=== PATIENT | male | born 1960 | race Caucasian/White ===

== ENCOUNTER 2021-05-07 09:37 | Outpatient (RCR) | payer OTHER, SELFPAY ==
[2021-05-07 14:43] VITALS: BP 112/60; PULSE 91; RESP 18; TEMP 36.9; O2SAT 99
[2021-05-07] MEDS: diphenhydrAMINE HCl CAP 25 MG CAPSULE PO (14:47)
[2021-05-07] MEDS: FAMOTIDINE 20 MG TABLET PO (14:47)
[2021-05-07 15:54] VITALS: BP 109/63; PULSE 69; RESP 14; TEMP 36.3; O2SAT 98
--- NOTE | 2021-05-08 15:14 | PC.NURSE ---
Called Mr Shaver and he stated he had body aches last night but today he is doing better. He has no questions at this time.
== END 2021-05-07 17:00 ==
LOC: AMCINF 09:37
PROVIDERS: PCP Physician Assistant; Visit Provider Internal Medicine Hematology & Oncology
DX: U07.1 COVID-19 (principal)
CPT/HCPCS: A9270; M0243; Q0244

== ENCOUNTER 2024-01-20 11:53 | Emergency (ER) | payer OTHER, SELFPAY ==
[2024-01-20 12:05] VITALS: BP 126/84; PULSE 89; RESP 20; TEMP 36.6; O2SAT 98
--- NOTE | 2024-01-20 12:05 | ED.CHESTPAIN ---
HPI - Chest Pain General Chief Complaint: Chest Pain Stated Complaint: passed out 11/2hr ago, pulse fast, chest pain Time Seen by Provider: 01/20/24 12:06 Source: patient, RN notes reviewed and old records reviewed Mode of arrival: ambulatory Limitations: no limitations History of Present Illness HPI narrative: Patient presents to [facility] with complaints of near syncope, dizziness, chest tightness. He reports in terms began about 2 hours ago. He reports he was working in the heat when symptoms began, he was also angry. States that he has felt better since sitting in air conditioning. Reports he still feels ?weird?. No diaphoresis noted. Patient observed ambulating with steady gait Related Data Home Medications Medication Instructions Recorded Confirmed No Home Medications 09/19/23 01/20/24 Allergies Allergy/AdvReac Type Severity Reaction Status Date / Time No Known Allergies Allergy Unknown Verified 01/20/24 12:03 Review of Systems Review of Systems: All systems reviewed & are unremarkable except as noted in HPI and below Constitutional: Constitutional: Reports no additional constitutional complaints ENT: Reports system reviewed and no additional complaints, except as documented Cardiovascular: Cardiovascular: Reports as per HPI, Reports no additional cardiovascular complaints, Reports chest pain, Denies diaphoresis, Denies syncope (Near syncope), Reports rapid heart rate and Reports dyspnea Respiratory: Respiratory: Reports as per HPI, Reports no additional respiratory complaints and Reports dyspnea Gastrointestinal: Gastrointestinal: Reports no additional gastrointestinal complaints Neurologic: Reports dizziness PMFSH Surgical History Surgical History No history of previous surgery Family History Family History Mother Dementia Sibling Primary cancer of blood vessel Father Family history of Alzheimer's disease, Onset Age: 74 Patient's father is Sibling Acute myocardial infarction Social History Social History Smoking status: Former smoker Tobacco type: cigarettes Second hand tobacco smoke exposure: No Smoking end date: 05/23/76 Alcohol intake: current Substance use: never Substance use type: does not use Lack of Transportation: No Lack of Food: Never True Current Housing: I Have Housing Concerned About Future Housing: No Difficulty Paying Gas/Electric Bills: No Difficulty Paying for Meds: No Currently Unemployed: No Education: High School Diploma/GED Difficulty w/ Childcare or Family Care: No Living arrangements: with family 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 There is no relevant family history pertinent to the patient complaint. Exam Const: General: cooperative, no acute distress, alert and awake Orientation/consciousness: oriented to person, oriented to place and oriented to time HENMT: Head: normal to inspection Resp: Effort & Inspection: normal respiratory effort and able to speak in complete sentences Auscultation: clear to auscultation bilaterally, no crackles, no rales, no rhonchi and no wheezes Cardio: Palpation: normal PMI Rate: regular rate Rhythm: regular rhythm Heart sounds: S1 normal heart sound present and S2 normal heart sound present Neuro: General: oriented to person, oriented to place and oriented to time Cranial nerves: Yes CN's II-XII intact bilaterally Psych: Appearance: grossly normal Thought process: Normal thought process present Insight: Good insight present
--- NOTE | 2024-01-20 12:06 | ECG_ITS ---
Test Date: 2024-01-20 12:17:33 Measurements Intervals [place] Rate: 90 P: 68 NC: 165 QRS: -75 QRSD: 105 T: 25 QT: 370 QTc: 455 Interpretive Statements SINUS RHYTHM LEFT ANTERIOR FASCICULAR BLOCK [QRS AXIS <= -45, QR IN I, RS IN II] No previous ECG available for comparison Electronically Signed On 01-21-2024 14:23:52 CDT by Samuel Walls M.D.
== END 2024-01-20 12:25 | disposition short-term general hospital (02) ==
PROVIDERS: Emergency Provider Nurse Practitioner Family; PCP Internal Medicine
DX: R07.9 Chest pain, unspecified (principal); Z87.891 Personal history of nicotine dependence
CPT/HCPCS: 93005; 99213; G0463

== ENCOUNTER 2024-01-20 12:58 | Emergency (ER) | payer OTHER, SELFPAY ==
--- NOTE | ~2024-01-20 | XR_ITS ---
EXAMINATION: XR chest 2V 01/20/2024 14:01 INDICATION: Chest pain PROCEDURE: 2 view chest COMPARISON: Comparison to multiple prior studies sequentially, with oldest reviewed study dated 12/09. FINDINGS: The lungs are clear. The cardiomediastinal silhouette is within normal limits. There are no pleural effusions. There is no pneumothorax suspected. IMPRESSION: 1: NO ACUTE CARDIOPULMONARY DISEASE. Reviewed, dictated and finalized at location B.
--- NOTE | ~2024-01-20 | CT_ITS ---
EXAMINATION: CTA chest PE protocol DATE: 01/20/2024 15:34 INDICATION: Chest pain. TECHNIQUE: Computed tomography angiography (CTA) of the chest was performed with 100 mL Omnipaque-350 intravenous contrast timed to evaluate the pulmonary arteries. Coronal maximum intensity projection 3D-reconstructions were created by the technologist. Automated exposure control and iterative reconst ruction technique were employed. The dose-length product was 570.48 mGy-cm. COMPARISON: None. FINDINGS: The lungs demonstrate mild dependent atelectasis. No pleural effusion. There is right ventr icular enlargement of the heart. There is a small pericardial effusion. There are acute pulmonary emb hedy in all lobes including a saddle embolus in the main pulmonary artery. There is mild thoracic spon dylosis. There is mild chronic anterior wedging of multiple vertebral bodies. IMPRESSION: 1. Extensive acute bilateral pulmonary emboli with right heart strain. I called this result to Dr. Pablito young. 2. Small pericardial effusion. Reviewed, dictated and finalized at location A. IMPRESSION: 1. Extensive acute bilateral pulmonary emboli with right heart strain. I called this result to Dr. Deleon. 2. Small pericardial effusion.
--- NOTE | 2024-01-20 13:01 | ECG_ITS ---
Test Date: 2024-01-20 13:05:57 Measurements Intervals [place] Rate: 90 P: 76 AR: 161 QRS: -78 QRSD: 94 T: 46 QT: 358 QTc: 439 Interpretive Statements SINUS RHYTHM PATTERN CONSISTENT WITH PULMONARY DISEASE LEFT ANTERIOR FASCICULAR BLOCK [QRS AXIS <= -45, QR IN I, RS IN II] Compared to ECG 01/20/2024 12:17:33 No significant changes Electronically Signed On 01-21-2024 14:25:08 CDT by Samuel Walls M.D.
[2024-01-20 13:24] LABS: Basophils Absolute Auto 0.1 K/mm3 (0.0-0.1); Basophils Percent Auto 0.4 % (0.2-1.2); Eosinophils Absolute Auto 0.1 K/mm3 (0-0.3); Hematocrit 45.4 % (42.0-52.0); Hemoglobin 15.9 g/dL (14.0-18.0); Immature Granulocyte Absolute 0.05 K/mm3 (0.00-0.031); Immature Granulocyte Percent A 0.4 % (0-0.5); Lymphocytes Absolute Auto 1.52 K/mm3 (0.9-3.2); Lymphocytes Percent Auto 12.4 % (18.3-44.2); Mean Corpuscular Hemoglobin 31.8 pg (26-34); Mean Corpuscular Volume 90.8 fl (80-100); Mean Platelet Volume 9.3 fl (7.4-10.4); Monocytes Absolute Auto 0.8 K/mm3 (0.1-0.6); Monocytes Percent Auto 6.5 % (2.6-8.5); Neutrophils Absolute Auto 9.8 K/mm3 (1.3-6.7); Neutrophils Percent Auto 79.3 % (45.5-73.1); Platelet Count Result 234 k/mm3 (150-375); White Blood Count 12.3 K/mm3 (4.5-10.0)
[2024-01-20] MEDS: ASPIRIN 81 MG CHEWABLE TABLET 324 MG PO (13:26)
[2024-01-20 13:34] LABS: INR 1.3; Prothrombin Time 16.5 Seconds (11.1-14.7)
[2024-01-20 13:35] LABS: Partial Thromboplastin Time 32.6 Seconds (22.3-36.8)
[2024-01-20 13:42] LABS: Alanine Aminotransferase 30 U/L (6-50); Albumin Level 4.4 g/dL (3.5-5.1); Alkaline Phosphatase 85 U/L (38-126); Anion Gap 9 mmol/L (4-12); Aspartate Amino Transferase 27 U/L (17-59); Bilirubin,Total 0.9 mg/dL (0.2-1.3); Blood Urea Nitrogen 17 mg/dL (9-20); Calcium 9.3 mg/dL (8.4-10.2); Carbon Dioxide 26 mmol/L (22-30); Chloride 104 mmol/L (98-107); Estimated CRCL calculation 73 ml/min; Estimated Glomerular Filt Rate > 60; Glucose 101 mg/dL (65-110); Lipase 58 U/L (23-300); Potassium 4.2 mmol/L (3.4-5.0); Sodium 139 mmol/L (137-145)
[2024-01-20 14:09] LABS: Troponin I 0.173 ng/mL (0.000-0.034)
[2024-01-20 14:23] LABS: D Dimer 12.76 ug/mL (<0.48)
[2024-01-20 14:58] VITALS: BP 123/99; PULSE 80; RESP 15; O2SAT 97
--- NOTE | 2024-01-20 15:15 | PM.CNCAR ---
Assessment and Plan Assessment and plan (1) Chest pain: Qualifiers: Chest pain type: unspecified Qualified Code(s): R07.9 - Chest pain, unspecified Code(s): R07.9 - Chest pain, unspecified Status: Acute (2) Troponin I above reference range: Code(s): R79.89 - Other specified abnormal findings of blood chemistry Status: Acute Plan This is a 63-year-old man with a paucity of risk factors. He is a former smoker who has a family history of coronary disease in 2 siblings. He enters the hospital with an episode of chest pain that began after a heated argument, conversation at work. He does not describe anything that sounds like exertional angina. He has 2 electrocardiograms that are normal but his admitted troponin level is moderately elevated. In this setting I would recommend pursuing a coronary angiogram since his troponin is elevated. Patient understands this and is agreeable we discussed the catheterization procedure in detail as well as the risks involved. We will bring him to the general labor shortly for angiographic assessment. Manuel Isidro MD [facility] History of Present Illness History of Present Illness Consult date/time: 01/20/24 15:15 Reason For Visit: CHEST PAIN,NEAR SYNCOPAL EVENT Narrative: This is a 63-year-old man I am seeing in the emergency room because of chest discomfort and elevation of troponin. Patient is unknown to me prior to this consultation. He is not known to have any cardiac problems up until now. He was in his usual state of what is relatively good health when this morning after he got to work he became angry regarding a co-worker who did show up for work. He was discussing this with others and he was becoming rather unhappy about the situation and this caused him to feel unwell with the sense of some tightness in the chest as well as some sense of sweating and lightheadedness. At 1 point he thought he was close to having a syncopal episode. Because of these symptoms he went into his truck turned on the air conditioner to cool down. He was then taken to the urgent care center by coworkers who brought into the emergency room for further evaluation. In the ER he has had 2 electrocardiograms which are unremarkable. He has lab data showing a troponin level that is somewhat elevated at just over 0.1. He does not have any known medical problems and takes no home medication for anything. He was a former smoker but quit more than 3 decades ago. He has 2 siblings, 1 sister and 1 brother who have coronary artery disease. Review of Systems Constitutional: Constitutional: Reports no additional constitutional complaints Eyes: Eyes: Reports no additional eye complaints ENT: Reports system reviewed and no additional complaints, except as documented Cardiovascular: Cardiovascular: Reports as per HPI and Reports chest pain Respiratory: Respiratory: Reports no additional respiratory complaints Gastrointestinal: Gastrointestinal: Reports no additional gastrointestinal complaints Musculoskeletal: Musculoskeletal: Reports no additional musculoskeletal complaints Integumentary/Breasts: Skin/Breast: Reports system reviewed and no additional complaints, except as docu Neurologic: Comments: Alert and oriented x3 Hematologic/Lymphatic: Hematologic/Lymphatic: Reports no additional hematologic/lymphatic complaints Allergic/Immunologic: Allergic/Immunologic: Reports no additional allergic/immunologic complaints [facility] Surgical History Surgical History No history of previous surgery Family History Family History Mother Dementia Sibling Primary cancer of blood vessel Father Family history of Alzheimer's disease, Onset Age: 74 Patient's father is Sibling Acute myocardial infarction Social History Social History (Reviewed
--- NOTE | 2024-01-20 15:18 | ED.CHESTPAIN ---
HPI - Chest Pain General Chief Complaint: Chest Pain Stated Complaint: CHEST PAIN,NEAR SYNCOPAL EVENT Time Seen by Provider: 01/20/24 13:08 Source: patient and family Mode of arrival: ambulatory Limitations: no limitations History of Present Illness HPI narrative: 63-year-old otherwise healthy here with the complaints of sudden onset of chest pain, shortness of breath. Patient states that he was about to go to work got into his truck started having chest pain followed by shortness of breath and lightheadedness. He states that he drove herself to Urgent Care and he was later referred here to the ER his pain present complaint upon arrival to the ER if shortness of breath has very minimal chest pain. No previous history of CAD. MD complaint: chest heaviness Onset (ago): hour(s) (2) Timing of current episode: now resolved Prior episodes: No Onset: during rest Pain location: substernal Pain radiation: none Quality: heaviness Relieving factors: nothing Exacerbating factors: nothing Associated symptoms: other (light headness) Treatment prior to arrival: none Risk Factors Coronary artery disease risk factors: smoking history Related Data Home Medications Medication Instructions Recorded Confirmed No Home Medications 09/19/23 01/20/24 Allergies Allergy/AdvReac Type Severity Reaction Status Date / Time No Known Allergies Allergy Unknown Verified 01/20/24 17:22 Review of Systems Review of Systems: All systems reviewed & are unremarkable except as noted in HPI and below Constitutional: Constitutional: Reports no additional constitutional complaints Eyes: Eyes: Reports no additional eye complaints ENT: Reports system reviewed and no additional complaints, except as documented Cardiovascular: Cardiovascular: Reports as per HPI Respiratory: Respiratory: Reports as per HPI Genitourinary: Genitourinary: Reports no additional male genitourinary complaints Musculoskeletal: Musculoskeletal: Reports no additional musculoskeletal complaints Neurologic: Reports system reviewed and no additional complaints, except as documented Psychiatric: Psychiatric: Reports no additional psychiatric complaints Hematologic/Lymphatic: Hematologic/Lymphatic: Reports no additional hematologic/lymphatic complaints [facility] Surgical History Surgical History No history of previous surgery Family History Family History Mother Dementia Sibling Primary cancer of blood vessel Father Family history of Alzheimer's disease, Onset Age: 74 Patient's father is Sibling Acute myocardial infarction Social History Social History Smoking status: Former smoker Tobacco type: cigarettes Second hand tobacco smoke exposure: No Smoking end date: 05/23/76 Alcohol intake: current Substance use: never Substance use type: does not use Lack of Transportation: No Lack of Food: Never True Current Housing: I Have Housing Concerned About Future Housing: No Difficulty Paying Gas/Electric Bills: No Difficulty Paying for Meds: No Currently Unemployed: No Education: High School Diploma/GED Difficulty w/ Childcare or Family Care: No Living arrangements: with family 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 HEAD: Normocephalic, atraumatic. EYES: PERRLA and EOMI. ENT: Nares clear, no rhinorrhea or epistaxis. Mucous membranes moist. NECK: Supple. CHEST: Clear to auscultation. No respiratory distress. HEART: Regular rate and rhythm. No murmur heard. Normal peripheral pulses. ABDOMEN: Soft, nontender, nondistended, normal ac
--- NOTE | 2024-01-20 15:20 | WPDMODSED ---
Moderate Sedation Note-Pt Data Patient Data Diagnosis: Chest pain, troponin elevation, rule out acute coronary syndrome Present Complaint: Chest pain earlier today Procedure to be performed/Plan: Left heart catheterization Allergies Allergy/AdvReac Type Severity Reaction Status Date / Time No Known Allergies Allergy Unknown Verified 01/20/24 12:03 Home Medications Medication Instructions Recorded Confirmed Type No Home Medications 09/19/23 01/20/24 History Sedation/Anesthesia: No previous sedation/anesthesia problems (including family history). [facility] Surgical History Surgical History No history of previous surgery Family History Family History Mother Dementia Sibling Primary cancer of blood vessel Father Family history of Alzheimer's disease, Onset Age: 74 Patient's father is Sibling Acute myocardial infarction Social History Social History Smoking status: Former smoker Tobacco type: cigarettes Second hand tobacco smoke exposure: No Smoking end date: 05/23/76 Alcohol intake: current Substance use: never Substance use type: does not use Lack of Transportation: No Lack of Food: Never True Current Housing: I Have Housing Concerned About Future Housing: No Difficulty Paying Gas/Electric Bills: No Difficulty Paying for Meds: No Currently Unemployed: No Education: High School Diploma/GED Difficulty w/ Childcare or Family Care: No Living arrangements: with family 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 Gender identity (if verbalized by the patient): Male Spiritual care concerns: No Mod Sed Physical Exam Physical Exam Pre Procedural Exam: Normal: Appearance, Neck, Throat, Airway, Lungs, Heart Size, Heart Rate, Heart Rhythm, Neuro Exam and Extremities Hours since solid foods: 12 Hours since liquid intake: 12 Mallampati Classification: class II Internal Medicine - PN: Obj Da Vital Signs Vital Signs: Vital Signs - 24 hr 01/20/24 13:13 01/20/24 14:58 Pulse Rate 80 Respiratory Rate 15 Blood Pressure 123/99 H Pulse Oximetry 97 Oxygen Delivery Room Air Meds/Results Radiology Results: ITS Impressions Chest X-Ray 01/20/24 14:17 IMPRESSION: 1: NO ACUTE CARDIOPULMONARY DISEASE. Labs 01/20/24 13:15 08/30/24 13:15 Labs: Laboratory Results - last 24 hr 01/20/24 13:15 WBC 12.3 H RBC 5.00 Hgb 15.9 Hct 45.4 MCV 90.8 MCH 31.8 MCHC 35.0 RDW 13.0 Plt Count 234 MPV 9.3 Immature Gran % (Auto) 0.4 Neut % (Auto) 79.3 H Lymph % (Auto) 12.4 L [place] % (Auto) 6.5 Eos % (Auto) 1.0 Baso % (Auto) 0.4 Lymph # (Auto) 1.52 [place] # (Auto) 0.8 H Eos # (Auto) 0.1 Baso # (Auto) 0.1 Abs Immat Gran (auto) 0.05 H Absolute Neuts (auto) 9.8 H Absolute Nucleated RBC 0.000 Nucleated RBC % 0.0 PT 16.5 H INR 1.3 APTT 32.6 D-Dimer 12.76 H Sodium 139 Potassium 4.2 Chloride 104 Carbon Dioxide 26 Anion Gap 9 BUN 17 Creatinine 1.00 Estim Creat Clear Calc 73 Estimated GFR > 60 Glucose 101 Calcium 9.3 Total Bilirubin 0.9 AST 27 ALT 30 Alkaline Phosphatase 85 Troponin I 0.173 H* Total Protein 8.0 Albumin 4.4 Lipase 58 ASA Classification/Sedation ASA Classification/Sedation ASA Class: III Emergent: No Risks: Risks, benefits and alternatives explained and patient/family accepted plan for sedation. Patient re-evaluated immediately prior to sedation.
--- NOTE | 2024-01-20 15:23 | PC.NURSE ---
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
--- NOTE | 2024-01-20 15:37 | ECG_ITS ---
Test Date: 2024-01-20 15:42:28 Measurements Intervals [place] Rate: 81 P: 67 [place]: 175 QRS: -63 QRSD: 96 T: 31 QT: 375 QTc: 436 Interpretive Statements SINUS RHYTHM INCOMPLETE RIGHT BUNDLE BRANCH BLOCK [90+ ms QRS DURATION, TERMINAL R IN V1/V2, 40+ ms S IN I/aVL/V4/V5/V6] LEFT ANTERIOR FASCICULAR BLOCK [QRS AXIS <= -45, QR IN I, RS IN II] Compared to ECG 01/20/2024 13:05:57 Incomplete right bundle-branch block now present Electronically Signed On 01-21-2024 14:32:36 CDT by Samuel Walls M.D.
[2024-01-20] MEDS: HEPARIN SODIUM 5,000 UNITS/ML VIAL 7000 UNITS IV PUSH (16:01)
[2024-01-20] MEDS: HEPARIN SOD/D5W 100 UNITS/ML 25,000 UNITS/250 ML BAG 15 UNITS IV CONT (16:02)
[2024-01-20 16:27] LABS: Troponin I 0.334 ng/mL (0.000-0.034)
[2024-01-20 17:25] VITALS: BP 131/90; PULSE 81; RESP 18; O2SAT 99
== END 2024-01-20 18:16 | disposition short-term general hospital (02) ==
PROVIDERS: Emergency Medicine; Emergency Provider Family Medicine; PCP Internal Medicine
DX: I26.99 Other pulmonary embolism 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 (principal); R79.89 Other specified abnormal findings of blood chemistry; Z87.891 Personal history of nicotine dependence; I44.4 Left anterior fascicular block; R94.31 Abnormal electrocardiogram [ECG] [EKG]
CPT/HCPCS: 36415; 71046; 71275; 80053; 83690; 84484; 85025; 85380; 85610; 85730; 93005; 96365; 96366; 99291; A9270; J1644; J7040; Q9967

== ENCOUNTER 2024-02-08 16:07 | Outpatient (CLI) | payer OTHER, SELFPAY ==
--- NOTE | ~2024-02-08 | US_ITS ---
EXAMINATION: US venous doppler [facility] DATE: 02/08/2024 17:13 INDICATION: Right lower limb pain. Other pulmonary embolism 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. TECHNIQUE: Grayscale ultrasound images without and with compression and Doppler ultrasound images of the bilateral lower extremity veins were obtained. COMPARISON: None. FINDINGS: The visualized portions of right common femoral vein, peroneal veins, posterior tibial veins, and gre ater saphenous vein outflow are patent. There is thrombus in right profunda femoral vein, femoral vei n, and popliteal vein. The visualized portions of left common femoral vein, profunda femoral vein, femoral vein, popliteal v ein, peroneal veins, posterior tibial veins, and greater saphenous vein outflow are patent. IMPRESSION: 1. Deep vein thrombosis involving right profunda femoral vein, femoral vein, and popliteal vein. Reviewed, dictated and finalized at location A. IMPRESSION: 1. Deep vein thrombosis involving right profunda femoral vein, femoral vein, a nd popliteal vein.
== END 2024-02-08 16:08 | disposition home or self-care (01) ==
LOC: ANHIMG 16:10
PROVIDERS: PCP Internal Medicine; Visit Provider Nurse Practitioner
DX: I26.99 Other pulmonary embolism 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 (principal); I82.411 Acute embolism and thrombosis of right femoral vein; I82.431 Acute embolism and thrombosis of right popliteal vein
CPT/HCPCS: 93970

== ENCOUNTER 2024-03-29 10:11 | Outpatient (CLI) | payer OTHER, SELFPAY ==
--- NOTE | ~2024-03-29 | XR_ITS ---
Right Shoulder Technique: AP and scapular Y views were obtained. Clinical History: Pain Findings: No fracture or dislocation is seen. Osseous alignment is anatomic. The glenohumeral and acr omioclavicular joint spaces are preserved. Soft tissues are unremarkable. Impression: Unremarkable right shoulder radiographs. Reviewed, dictated and finalized at [facility]. 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
== END 2024-03-29 10:12 | disposition home or self-care (01) ==
LOC: ANHIMG 10:13
PROVIDERS: PCP Internal Medicine; Visit Provider Internal Medicine
DX: M25.511 Pain in right shoulder (principal)
CPT/HCPCS: 73030

== ENCOUNTER 2024-05-07 13:57 | Outpatient (CLI) | payer OTHER, SELFPAY ==
--- NOTE | ~2024-05-07 | XR_ITS ---
EXAMINATION: XR lg joint inject/asp w image DATE: 05/07/2024 15:01 INDICATION: Right shoulder primary osteoarthritis with 3 months of pain TECHNIQUE: A time-out was performed to verify the patient's name, date of , and procedure to b e performed. The procedure including the risks, benefits, and alternatives was discussed with the pat ient. Risks discussed included bleeding and infection. The patient understood the risks and agreed to proceed. The skin overlying the rotator cuff interval the right glenohumeral joint was prepped and draped in usual sterile fashion. Anesthetic was administered with 1% lidocaine subcutaneously. A 22 G needle was advanced under fluoroscopic guidance into the joint. Injection of 1 mL of Omnipaque 24 0 confirmed intra-articular position of the needle. Subsequently, injectate consisting of 5 mm a 4:1 mixture of 1% lidocaine: 80 mg/mL Depo-Medrol for a total dose of 80 mg Depo-Medrol was instilled. W ashout of contrast was seen confirming intra-articular administration. The needle was removed and the entry site was cleaned and dressed. There were no immediate complications. Fluoroscopy exposure tana e was 0.1 minutes. The total number of images was 2. Total DAP was 0.225 Gycm^2 FINDINGS: Real-time fluoroscopy demonstrates the needle and contrast in the right glenohumeral joint. Patient's pain prior to procedure:6/10. Patient's pain following the procedure: 0/10. IMPRESSION: 1. Successful right glenohumeral injection of local anesthetic and steroid with decrease in the patie nt's presenting pain. Reviewed, dictated and finalized at location A. SOLUTION ARCHITECT IMPRESSION: 1. Successful right glenohumeral injection of local anesthetic and steroid with decrease in the patient's presenting pain.
== END 2024-05-07 13:58 | disposition home or self-care (01) ==
PROVIDERS: PCP Internal Medicine; Visit Provider Physician Assistant Surgical
DX: M19.011 Primary osteoarthritis, right shoulder (principal)
CPT/HCPCS: 20610; 77002; J1010; J2003

== ENCOUNTER 2024-11-05 13:58 | Outpatient (CLI) | payer OTHER, SELFPAY ==
--- NOTE | ~2024-11-05 | XR_ITS ---
EXAMINATION: XR UGIAC w barium swallow DATE: 11/05/2024 14:41 INDICATION: Epigastric pain TECHNIQUE: The patient drank thick barium, gas-producing crystals, and thin barium. A total of 1180 f luoroscopic images of the esophagus, stomach, and proximal small bowel were obtained. Fluoroscopy exp osure time was 2.2 minutes. Total DAP was 18.925 Gycm^2. COMPARISON: None. FINDINGS: The esophagus is normal without mass or stricture. Esophageal motility is normal. Small sli ding-type hiatal hernia with gastroesophageal junction 4-5 cm above level of the diaphragm. There is one episode of gastroesophageal reflux of a moderate amount of contrast extending to the level of the upper thoracic esophagus. The stomach and proximal small bowel are normal. IMPRESSION: 1. Small sliding-type hiatal hernia with one episode gastroesophageal reflux. Reviewed, dictated and finalized at location A.
--- OUTSIDE RECORDS SUMMARY | 2024-11-05 15:06 | XMS_ITS | Clinical Summary ---
Author Organization [facility] Address [address] [place] [address] Phone Care Team Providers Care Utility Hand Name Role Phone Unavailable Primary Care Provider Unavailabl e Social History Tobacco Use Types Packs/Day Years Used Date Smoking Tobacco: Never Assessed Sex and Gender Information Value Date Recorded Sex Assigned at Not on file Legal Sex Male 10:58 AM CDT Gender Identity Not on file Sexual Orientation Not on file Plan of Treatment Not on file
--- OUTSIDE RECORDS SUMMARY | 2024-11-05 15:06 | XMS_ITS | Clinical Summary ---
Author Organization [facility] Address [address] [place] [address] Care Team Providers Care Wine Sales Representative Name Role Phone Janet Romero DO Primary Care Provider [phone] Source Comments [facility],non-owned Affiliates and Associated Physician Practices is amultiple site organization consisting of ambulatory clinics and hospital sitesin [place], [place], [place] and [place]. This disclosure is being madepursuant to the Care Everywhere program and may not contain all information available regarding this patient. Last updated 18.[facility] Allergies No known active allergies Medications * Be aware that medications may not be up to date on this document. Alwaysverify current medications with the patient. ezetimibe (Zetia) 10 MG tabletIndications: Hyperlipidemia, unspecified hyperlipidemia type Take 1 (one) tablet by mouth once daily 30 tablet 5 10/25/19 26 Active apixaban (Eliquis) 5 MG tablet Take 1 (one) tablet by mouth 2 times daily 180 tablet 1 5 10/23/19 25 Discontinu ed(Reorder ) apixaban (Eliquis) 5 MG tablet Take 1 (one) tablet by mouth 2 times daily 180 tablet 1 5 11/01/19 25 Discontinu ed(Tx Complete) Active Problems Problem Noted Date Diagnosed Date Deep vein thrombosis (DVT) of proximal lower ext remity 01/23/2024 Elevated troponin 01/21/2024 Chest pain 01/21/2024 Leukocytosis 01/21/2024 Acute saddle pulmonary embol ism, unspecified whether acute cor pulmonale present 01/20/2024 GERD (gastroesophageal reflux disease) Encounters Date Type Department Care Team Description 10/31/2024 Orders Only [facility] INTERNAL MED [address] [place] [address] Janet Romero, 10/24/2024 2:30 PM CDT Office Visit [facility] Internal Med [facility] [place] [address] Janet Romero, Saddle embolus of pulmonary artery 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, unspecified chronicity (HCC) (Primary Dx); Leg DVT (deep venous thromboembolism), chronic, bilateral (HCC); Hyperlipidemia, unspecified hyperlipidemia type; Colon cancer screening 10/24/2024 Travel 10/22/2024 Orders Only [facility] INTERNAL MED [address] [place] [address] Janet Romero, 10/22/2024 Telephone [facility] [place] [address] Janet Romero DO Med Question; Echocardiogram 08/27/2024 1:00 PM CDT - 08/27/2024 11:59 PM CDT Hospital Encounter [facility] VASCULAR US [address] [place] [address] Pavel Hernandez MD Discharge Disposition: Home or Self Care 08/27/2024 Travel from Last 3 Months Family History Medical History Relation Name Comments CAD (Coronary Artery Disease) Brother Cancer - Prostate Brother CVA Mother CAD (Coronary Artery Disease) Sister Relation Name Status Comments Brother Mother Sister Social History Tobacco Use Types Packs/Day Years Used Date Smoking Tobacco: Former Cigarettes 1 44.8 S tarted: 01/1980 Passive Smoke Exposure: Never Smokeless Tobacco: Never Tobacco Cessation:Counseling Given: Not Answered Comments:has not used since teenage years (14-15) Alcohol Use Standard Drinks/Week Comments Yes 0 (1 standard drink = 0.6 oz pur e alcohol) socially AUDIT-C Answer Date Recorded Q1: How often do you have a drink containing alc ohol? Monthly or less 01/21/2024 Q2: How many drinks containi ng alcohol do you have on a typical day when you are drinking? 1 or 2 01/21/2024 Q3: How often do you have si x or more drinks on one occasion? Less than monthly 01/21/2024 Overall Financial Resource Strain (CARDIA) Answe r Date Recorded How hard is it for you to pa y for the very basics like food, housing, medical care, and heating? Patient declined 01/21/2024 PHQ-2 Answer Date Recorded Patient Health Questionnaire-2 Score 0 10/24/2024 [facility] - Occupational Stress Questionnaire Answer Date Recorded Do you feel stress - tense, restless, nervous, or anxious, or unable to sleep at night because your mind is troubled all the time - these days? Only a little 01/21/2024 Hunger Vital Sign Answer Date Recorded Within the past 12 months, y ou worried that your food would run out before you got the money to buy more. Patient declined Within the past 12 months, t he food you bought just didn't last and you didn't have money to get more. Patient declined PRAPARE - Transportation Answer Date Re corded In the past 12 months, has l ack of transportation kept you from medical appointments or from getting medications? Patient declined 01/21/2024 In the past 12 months, has l ack of transportation kept you from meetings, work, or from getting things needed for daily living? Patient declined 01/21/2024 Housing Stability Vital Sign Answer Conner e Recorded In the last 12 months, was t here a time when you were not able to pay the mortgage or rent on time? Patient declined 01/21/20 24 In the last 12 months, how many places have you lived? 1 01/21/2024 In the last 12 months, was t here a time when you did not have a steady place to sleep or slept in a residential (including now)? No 01/21/2024 Sex and Gender Information Value Date Recorded Sex Assigned at Male 01/21/2024 11:15 AM CDT Legal Sex Male 4:17 PM CDT Gender Identity Male 01/21/2024 11:15 AM CDT Sexual Orientation Straight 01/21/2024 11 :15 AM CDT Last Filed Vital Signs Vital Sign Reading Time Taken Comments Blood Pressure 113/75 10/24/2024 2:41 PM CDT Pulse 80 10/24/2024 2:41 PM CDT Temperature 36.2 C (97.2 F) 10/24/2024 2:41 PM CDT Respiratory Rate 17 06/13/2024 3:41 PM SURGICAL GARMENT ASSEMBLY SUPERVISOR Oxygen Saturation 95% 10/24/2024 2:41 PM CDT Inhaled Oxygen Concentration - - Weight 100.7 kg (222 lb) 10/24/2024 2:41 PM CDT Height 177.8 cm (5' 10) 10/24/2024 2:41 PM CDT Body Mass Index 31.85 10/24/2024 2:41 PM CDT Plan of Treatment Upcoming Encounters Date Type Department Care Team (Late st Contact Info) Description 12/05/2024 12:20 PM CDT Appointment [facility] CL[facility]IC [address] [place] [address] Susan Montez MD [address] [place] [phone] 05/01/2025 3:30 PM SURGICAL GARMENT ASSEMBLY SUPERVISOR Office Visit [facility] - Internal Med [address] [place] [phone] Health Maintenance Due Date Last Done Comments COLON MONITORING 1960 COLONOSCOPY - COLON CA SCREENING 1960 CT COLONOGRAPHY - COLON CA SCREENING 1960 FIT - COLON CA SCREENING 1960 FLEX SIG - COLON CA SCREENING 1960 ZOSTER VACCINE (1 of 2) 2010 INFLUENZA VACCINE (Season Ended) 2025 DTAP/TDAP/TD VACCINES (1 - Tdap) 01/24/2025 Postponed from 1979 (Patient Refused) Respiratory Syncytial Virus (RSV) Vaccine Pt: or over 60 yrs (1 - Risk 60-74 years 1-dose series) 01/24/2025 Postponed fro m 2020 (Patient Refused) COVID-19 VACCINE ( season) 2025 Postponed from 01/22/2024 (Patient Refused) HEPATITIS B VACCINE (1 of 3 - Risk 3-dose series) 10/24/2025 Postponed from 2020 (Patient Refused) PNEUMOCOCCAL VACCINE 50+ (1 of 1 - PCV) 10/24/2025 Postponed from 2010 (Patient Refused) SCREENING FOR DIABETES 06/06/2027 , 04/23/2024, 04/23/2024, Additional history exists COLOGUARD (AGES 45-75) - COLON CA SCREENING 10/31/2027 10/30/2024 Colorectal Cancer Screening 10/31/2027 LIPID TESTING 04/23/2029 04/23/2024 HEPATITIS C SCREENING Completed 04/23/2024 HIV SCREENING Completed 04/23/2024 DEPRESSION SCREENING Completed 10/24/2024, 04/23/20 24 HIB VACCINE Aged Out No longer eligi ble based on patient's age to complete this topic HPV VACCINE Aged Out No longer eligi ble based on patient's age to complete this topic MENINGOCOCCAL (Group B) VACCINE SHARED DECISION-MAKING Aged Out No longer eligible based on patient's age to complete this topic MENINGOCOCCAL GROUPS A/C/Y/W VACCINE Aged Out No longer eligible based on patient's age to complete this topic Goals Goal Patient Goal Type Associated Problems Recent Progress Patient-Stated? Author Medication Management General On track( 024 12:38 PM SURGICAL GARMENT ASSEMBLY SUPERVISOR) Dominguez De, RN Note: Expected end date: Interventions: Take all medications as prescribed Let your doctor know right away about any changes in your medications Make sure to request a refill of your medication at least one week prior to your last dose Procedures Procedure Name Priority Date/Time Associated Diagnosis Comments COLOGUARD TEST Routine 10/30/2024 8:00 AM CDT Colon cancer screening VAS BILATERAL VENOUS DUPLEX LE Routine 08/27/2024 2:14 PM CDT Chronic deep vein thrombosis (DVT) of distal vein of both lower extremities (HCC) COMPREHENSIVE METABOLIC PANEL STAT 06/06/2024 3:33 PM SURGICAL GARMENT ASSEMBLY SUPERVISOR 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 LIPID PROFILE Routine 04/23/2024 4:15 PM SURGICAL GARMENT ASSEMBLY SUPERVISOR Encounter to establish care Saddle embolus of pulmonary artery 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, unspecified chronicity Leg DVT (deep venous thromboembolism), chronic, bilateral HEPATITIS C AB SCREEN RFLX NAAT QUANT Routine 04/23/2024 4:15 PM SURGICAL GARMENT ASSEMBLY SUPERVISOR Encounter to establish care Saddle embolus of pulmonary artery 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, unspecified chronicity Leg DVT (deep venous thromboembolism), chronic, bilateral HIV-1 HIV-2 ANTIBODY + HIV P24 AG PANEL Routine 04/23/2024 4:15 PM SURGICAL GARMENT ASSEMBLY SUPERVISOR Encounter to establish care Saddle embolus of pulmonary artery 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, unspecified chronicity Leg DVT (deep venous thromboembolism), chronic, bilateral from Last 3 Months or Most Recently Relevant to Health Maintenance Results * [id number] COLOGUARD TEST *Associate with Z12.11 OR Z12.12 Dx Codes* (10/30/2024 8:00 AM CDT) Cologuard Negative Negative [facility] Comment: The Cologuard (TM) test was performed on this specimen. NEGATIVE TEST RESULT. A negative Cologuard result indicates a low likelihood that a colorectal cancer (CRC) or advanced adenoma (adenomatous polyps with more advanced pre-malignant features) is present. The chance that a person with a negative Cologuard test has a colorectal cancer is less than 1 in 1500 (negative predictive value >99.9%) or has an advanced adenoma is less than 5.3% (negative predictive value 94.7%). These data are based on a prospective cross-sectional study of 10,000 individuals at average risk for colorectal cancer who were screened with both Cologuard and colonoscopy. (Luz Servin, N Engl J Med 2014;370(14):4047-8302) The normal value (reference range) for this assay is negative. COLOGUARD RE-SCREENING RECOMMENDATION: Periodic colorectal cancer screening is an important part of preventive healthcare for asymptomatic individuals at average risk for colorectal cancer. Following a negative Cologuard result, the [place] [employer] Society and U.S. Multi-Society Task Force screening guidelines recommend a Cologuard re-screening interval of 3 years. References: [place] [employer] Guideline for Colorectal Cancer Screening: https://www.cancer.org/cancer/qvkgd-medbxv-vfopht/nphqnlwtb-iyszhrwpb-ftkqnhb/ acs-recommendations.html.; Declan DK, Karolina ROE, Ousmane SilverK, Colorectal Cancer Screening: Recommendations for Physicians and Patients from the U.S. Multi-Society Task Force on Colorectal Cancer Screening , Am J Gastroenterology 2017; 112:6069-0338. TEST DESCRIPTION: Composite algorithmic analysis of stool DNA-biomarkers with hemoglobin immunoassay. Quantitative values of individual biomarkers are not reportable and are not associated with individual biomarker result reference ranges. Cologuard is intended for colorectal cancer screening of adults of either sex, 45 years or older, who are at average-risk for colorectal cancer (CRC). Cologuard has been approved for use by the U.S. FDA. The performance of Cologuard was established in a cross sectional study of average-risk adults aged 50-84. Cologuard performance in patients ages 45 to 49 years was estimated by sub-group analysis of near-age groups. Colonoscopies performed for a positive result may find as the most clinically significant lesion: colorectal cancer [4.0%', advanced adenoma (including sessile serrated polyps greater than or equal to 1cm diameter) [20%' or non- advanced adenoma [31%'; or no colorectal neoplasia [45%'. These estimates are derived from a prospective cross-sectional screening study of 10,000 individuals at average risk for colorectal cancer who were screened with both Cologuard and colonoscopy. (Luz Jordan et al, N Engl J Med 2014;370(14):2494-7046.) Cologuard may produce a false negative or false positive result (no colorectal cancer or precancerous polyp present at colonoscopy follow up). A negative Cologuard test result does not guarantee the absence of CRC or advanced adenoma (pre-cancer). The current Cologuard screening interval is every 3 years. ([place] Cancer Society and U.S. Multi-Society Task Force). Cologuard performance data in a 10,000 patient pivotal study using colonoscopy as the reference method can be accessed at the following location: www.[employer].Ablynx/results. Additional description of the Cologuard test process, warnings and precautions can be found at www.cologuard.com. Stool STOOL SPECIMEN / Unknown 10/30/2024 8:00 AM CDT 10/31/2024 12:14 PM CDT Adam Gandhi MD LAB - CHEMISTRY ORDERABLES F inal Result [email or web address] [address] [facility] [address] [place] [address] [employer] [address] [place] [address] * VAS Bilateral Venous Duplex Le (08/27/2024 2:14 PM CDT) Anatomical Region Laterality Modality Lower Extremity Intravascular Ul trasound 08/27/2024 1:38 PM CDT Narrative Procedure Note Efrem Flowers MD - 08/28/2024 Pavel Hernandez MD VASCULAR LAB ORDERABLES Edited Result - Final * (ABNORMAL) COMPREHENSIVE METABOLIC PANEL (06/06/2024 3:33 PM SURGICAL GARMENT ASSEMBLY SUPERVISOR) BUN 15 7 - 26 mg/dL 06/06/2024 4:46 PM [facility] Creatinine 0.98 0.71 - 1.16 mg/dL 06/06/2024 4:46 PM [facility] Sodium 140 136 - 145 mmol/L 06/06/2024 4:46 PM [facility] Potassium 3.8 3.5 - 4.5 mmol/L 06/06/2024 4:46 PM [facility] Chloride 108(H) 98 - 107 mmol/L 06/06/2024 4:46 PM [facility] CO2 24 22 - 29 mmol/L 06/06/2024 4:46 PM [facility] Glucose 94 70 - 99 mg/dL 06/06/2024 4:46 PM [facility] Calcium 9.4 8.4 - 10.2 mg/dL 06/06/2024 4:46 PM [facility] Protein Total 7.0 6.0 - 8.3 g/dL 06/06/2024 4:46 PM [facility] Albumin 4.3 3.4 - 5.0 g/dL 06/06/2024 4:46 PM [facility] Bilirubin Total 0.6 0.2 - 1.2 mg/dL 06/06/2024 4:46 PM [facility] Alkaline Phosphatase 69 40 - 150 U/L 06/06/2024 4:46 PM [facility] ALT 19 5 - 55 U/L 06/06/2024 4:46 PM [facility] AST 16 5 - 34 U/L 06/06/2024 4:46 PM [facility] Anion Gap 8 6 - 16 06/06/2024 4:46 PM [facility] BUN/Creatinine Ratio 15 7 - 23 06/06/2024 4:46 PM [facility] Osmolality Calculated 291 275 - 295 mOsm/kg 06/06/2024 4:46 PM [facility] Albumin/Globulin Ratio 1.6 1.1 - 2.3 06/06/2024 4:46 PM [facility] eGFR by CKD-EPI 87(L) >=90 mL/min/1.7 3 m2 06/06/2024 4:46 PM [facility] Blood BLOOD SPECIMEN / Unknown Venipuncture / Unknown 06/06/2024 3:33 PM SURGICAL GARMENT ASSEMBLY SUPERVISOR 06/06/2024 4:20 PM [facility] us Susan Montez MD LAB - CHEMISTRY ORDERABLES Final Result [facility] [address] [place] [phone], [facility] [phone] * HEPATITIS C AB SCREEN RFLX NAAT QUANT (04/23/2024 4:15 PM SURGICAL GARMENT ASSEMBLY SUPERVISOR) Hepatitis C Antibody Non-react shayan Non-reac tive 04/23/2024 5:27 PM [facility] Comment:Hepatitis C Antibody screen indicates no serologic evidence of past or current infection with Hepatitis C Virus. Patients with unexplained liver disease who are immunocompromised or suspected of having acute Hepatitis C infection may benefit from Nucleic Acid Test (SAVANNA) for Hepatitis C Viral RNA to confirm Hepatitis C status. Blood BLOOD SPECIMEN / Unknown Lab Venipuncture / Unknown 04/23/2024 4:15 PM SURGICAL GARMENT ASSEMBLY SUPERVISOR 04/23/2024 4:33 PM SURGICAL GARMENT ASSEMBLY SUPERVISOR [facility] - CHEMISTRY ORDERABLES F inal Result Performing Organization Address City/[facility]/ZIP Co de Phone Number [address] [address], [place] [phone] * HIV-1 HIV-2 ANTIBODY + HIV P24 AG PANEL (New on 10/06) (04/23/2024 4:15 PM SURGICAL GARMENT ASSEMBLY SUPERVISOR) HIV Antigen/Antibod y 1 & 2 Non-reacti ve Non-react shayan 04/23/2024 5:27 PM [facility] Comment:No Laboratory eviden ce of HIV infection. Blood BLOOD SPECIMEN / Unknown Lab Venipuncture / Unknown 04/23/2024 4:15 PM SURGICAL GARMENT ASSEMBLY SUPERVISOR 04/23/2024 4:33 PM SURGICAL GARMENT ASSEMBLY SUPERVISOR [facility] LAB - CHEMISTRY ORDERABLES F inal Result Performing Organization Address [facility] [place]/[facility]/ZIP Co de Phone Number [address] [address], [place] [phone] * (ABNORMAL) LIPID PROFILE (04/23/2024 4:15 PM SURGICAL GARMENT ASSEMBLY SUPERVISOR) Cholesterol Total 265(H) <200 mg/dL 04/23/2024 5:18 PM [facility] HDL 41 >40 mg/dL 04/23/2024 5:18 PM [facility] Comment: ATP III Classification of HDL Cholesterol: <40 mg/dL: Considered a major risk factor. >60 mg/dL: Considered a negative risk factor. LDL Calculated 181(H) <100 mg/dL 04/23/2024 5:18 PM [facility] Comment: ATP III Classification of LDL Cholesterol: <100 mg/dL: Optimal 100 - 129 mg/dL: Near Optimal/Above Optimal 130 - 159 mg/dL: Borderline High 160 - 189 mg/dL: High >190 mg/dL: Very High Triglycerides 214(H) <150 mg/dL 04/23/2024 5:18 PM [facility] Comment: ATP III Classification of Triglycerides: <150 mg/dL: Normal 150 - 199 mg/dL: Borderline High 200 - 400 mg/dL: High >500 mg/dL: Very High Blood BLOOD SPECIMEN / Unknown Lab Venipuncture / Unknown 04/23/2024 4:15 PM SURGICAL GARMENT ASSEMBLY SUPERVISOR 04/23/2024 4:47 PM SURGICAL GARMENT ASSEMBLY SUPERVISOR Genesis Thurman DO LAB - CHEMISTRY ORDERABLES F inal Result [facility] [address] [place] [address], [facility] [phone] from Last 3 Months or Most Recently Relevant to Health Maintenance Insurance [facility] Advance Directives * Full Code (Latest Code Status on File) Date Activated Date Inactivated Comments 01/20/2024 7:29 PM 01/23/2024 3:13 PM Care Teams Wine Sales Representative Relationship Specialty Start Date End Date Janet Romero DO [address] [facility] [place] [address] PCP - General Internal Medicine 04/23/24
--- OUTSIDE RECORDS SUMMARY | 2024-11-05 15:06 | XMS_ITS | Encounter Summary ---
Author Organization [facility] Address [address] [facility] [place] [address] Care Team Providers Care Bulb Filler Name Role Phone Janet Romero DO Primary Care Provider Encounter Details Date Type Department Care Team (Late st Contact Info) Description 10/31/2024 Orders Only [facility] PHYS INTERNAL MED [address] [place] [phone] Janet Romero DO [address] [facility] [place] [address] Social History Tobacco Use Types Packs/Day Years Used Date Smoking Tobacco: Former Cigarettes 1 44.8 S tarted: 01/1980 Passive Smoke Exposure: Never Smokeless Tobacco: Never Comments:has not used since teenage years (14-15) [...] Recorded Patient Health Questionnaire-2 Score 0 10/24/2024 [facility] [place] of Occupat ional Health - Occupational Stress [...] place to sleep or slept in a [place] facility (including now)? No 01/21/2024 Sex and Gender Information Value Date Recorded Sex Assigned at Male 01/21/2024 11:15 AM CDT Legal Sex Male 4:17 PM CDT Gender Identity Male 01/21/2024 11:15 AM CDT Sexual Orientation Straight 01/21/2024 11 :15 AM CDT documented as of this encounter Functional Status * Is person deaf or have serious hearing difficulty? Answer Date of Assessment Author No 01/21/2024 1:00 AM CDT Claudia Milton RN * Is person blind or have serious difficulty seeing? Answer Date of Assessment Author No 01/21/2024 1:00 AM CDT Claudia Milton RN * Does person have serious difficulty walking/climbing stairs? Answer Date of Assessment Author No 01/21/2024 1:00 AM CDT Claudia Milton RN * Does person have difficulty dressing/bathing? Answer Date of Assessment Author No 01/21/2024 1:00 AM CDT Claudia Milton RN * Does person have difficulty doing errands alone? Answer Date of Assessment Author No 01/21/2024 1:00 AM CDT Claudia Milton RN documented as of this encounter Mental Status * Does person have difficulty concentrating/remembering/making decisions? Answer Entry Date Author No 01/21/2024 1:00 AM CDT Claudia Milton RN documented in this encounter Plan of Treatment Upcoming Encounters Date Type Department Care Team (Late st Contact Info) Description 12/05/2024 12:20 PM CDT Appointment [facility] [address] [place] [address] Susan Montez MD [address] [place] [address] 05/01/2025 3:30 PM CONTINUOUS PICKLING LINE PICKLER HELPER Office Visit [facility] - Internal Med [facility] [facility], [facility] [place] [address] documented as of this encounter Goals Goal Patient Goal Type Associated Problems Recent Progress Patient-Stated? Author Medication Management General On track( 024 12:38 PM CONTINUOUS PICKLING LINE PICKLER HELPER) Dominguez De, RN Note: Expected end date: Interventions: Take all medications as prescribed Let your doctor know right away about any changes in your medications Make sure to request a refill of your medication at least one week prior to your last dose documented as of this encounter Visit Diagnoses Not on filedocumented in this encounter Care Teams Bulb Filler Relationship Specialty Start Date End Date Janet Romero DO [address] [facility] [place] [address] PCP - General Internal Medicine 04/23/24 documented as of this encounter
== END 2024-11-05 13:59 | disposition home or self-care (01) ==
PROVIDERS: PCP Internal Medicine; Visit Provider Internal Medicine
DX: R10.13 Epigastric pain (principal); K44.9 Diaphragmatic hernia without obstruction or gangrene
CPT/HCPCS: 74246

== ENCOUNTER 2024-11-19 13:30 | Emergency (ER) | payer OTHER, SELFPAY ==
[2024-11-19] VITALS (44 sets, daily range): BP systolic 115–144; BP diastolic 51–106; PULSE 60–95; RESP 12–32; TEMP 36.8; O2SAT 93–100
--- NOTE | ~2024-11-19 | US_ITS ---
RIGHT LOWER EXTREMITY VENOUS ULTRASOUND Ordering provider: Michelle Osman APRN History: . R lower swelling, previous PE . Comparison: None. FINDINGS: --COMMON FEMORAL: Patent and free of thrombus. Normal compressibility, phasic flow and augmentation. --PROXIMAL SUPERFICIAL FEMORAL: Patent and free of thrombus. Normal compressibility, phasic flow and augmentation. --DISTAL SUPERFICIAL FEMORAL: Thrombosed. --POPLITEAL: Thrombosed. --POSTERIOR TIBIAL: Patent and free of thrombus. Normal compressibility, phasic flow and augmentation . The peroneal vein: Thrombosed. Lesser saphenous: Thrombosed. IMPRESSION: DVT in the right lower extremity. Michelle Osman APRN was notified with the result patient at 3:17 p.m. on November 09 2024. Reviewed, dictated and finalized at location A.
--- NOTE | ~2024-11-19 | CT_ITS ---
EXAMINATION: CTA chest PE protocol DATE: 11/19/2024 16:43 INDICATION: SOB, hx of PE, + DVT TECHNIQUE: Computed tomography angiography (CTA) of the chest was performed with 100 mL Omnipaque-350 intravenous contrast timed to evaluate the pulmonary arteries. Coronal maximum intensity projection 3D-reconstructions were created by the technologist. The dose-length product (DLP) was 441.03 mGy-cm. Automated exposure control and iterative reconstruction technique were employed. COMPARISON: CTPA 01/20/2024. FINDINGS: Lung parenchyma and airways: Clear. Pleura: Trace right pleural fluid. Thoracic inlet, axillae and chest wall: Unremarkable. Thoracic aorta: No significant dilation. No dissection. Mediastinum: Normal. Heart and pericardium: Normal heart size. Small pericardial fluid collection. RV/LV ratio less than 1 . Slight flattening of the interventricular septum. Slight hepatic pain reflux. Coronary artery calcifications: Mild. Upper abdomen: No significant finding. Bones: No acute osseous finding. Pulmonary arteries: Study quality: Adequate. Nonocclusive segmental right upper lobe emboli. Occlusiv e and nonocclusive segmental and subsegmental right lower lobe emboli. IMPRESSION: Occlusive and nonocclusive segmental and subsegmental pulmonary emboli involving the right upper and right lower lobes. RV/LV ratio less than 1, however there is intraventricular flattening and hepatic vein reflux as can occur with right heart strain. Moderate clot volume. Small pericardial effusion. Trace right pleural effusion. Reviewed, dictated and finalized at location K. IMPRESSION: Occlusive and nonocclusive segmental and subsegmental pulmonary emboli involvin g the right upper and right lower lobes. RV/LV ratio less than 1, however there is intraventricular flattening and hepatic vein reflux as can occur with right heart strain. Moderate clot volume. Small pericardial effusion. Trace right pleural effusion.
--- OUTSIDE RECORDS SUMMARY | 2024-11-19 13:51 | XMS_ITS | Clinical Summary ---
Author Organization [facility] Address [address] [place] [address] Phone Care Team Providers Care Tube Former Operator Name Role Phone Unavailable Primary Care Provider [...]
--- OUTSIDE RECORDS SUMMARY | 2024-11-19 13:51 | XMS_ITS | Encounter Summary ---
Author Organization [facility] Health Address [address] [place] [address] Care Team Providers Care Holistic Specialist Name Role Phone Janet Romero DO Primary Care Provider Reason for Visit * Reason Onset Date Comments Swelling Ankle 11/19/2024 Encounter Details Date Type Department Care Team (Late st Contact Info) Description 11/19/2024 Telephone [facility] - Internal Med [address] [facility] [place] [phone] Janet Romero DO [address] [facility] [place] [address] Swelling Ankle Social History Tobacco Use Types Packs/Day Years [...] Recorded Patient Health Questionnaire-2 Score 0 10/24/2024 [facility] ional [facility] - Occupational Stress [...] Claudia Milton RN documented in this encounter Miscellaneous Notes * Telephone Encounter - Gianna Mata RN - 11/19/2024 12:10 PM CDT Patient called back & stated he will no longer have Heather as his PCP. He will continue using Dr. Pedroza Venice as his PCP. * Telephone Encounter - Kennedi Woodward RN - 11/19/2024 10:36 AM CDT Gm, JET ENGINE MECHANIC with Dr Baltazar Carranza, [facility], [facility] of [facility]. Pt has been seeing Dr Carranza as well as Dr Romero for Internal Medicine. Last saw Dr Carranza on September 24, 2024 for Wellness Exam. Pt est with Dr Romero on 04/23/24 and had recent f/u with Dr Romero on 10/24/24. Pt should only have one pcp. Gm was calling pt called in to Dr Carranza's office this morning and said his R ankle is swollen and looks bruised. He told them that he stopped Eliquis about a week ago. The office was calling to confirm who told him to stop the blood thinner and also let us know he is currently seeing 2 pcp's. Triage advised that Dr Romero had a discussion with Pulm and Hem and they said to stop the Eliquis. Pt is concerned now since he stopped blood thinner, that he has the R ankle swelling and bruise. Gm said they will call the patient back and advise him he can only have one PCP and will need to make a decision on that. Gm said they have no appts at their clinic this week, and triage advised we have no acute care appts available for evaluation of his R ankle. Recommended pt go to ER/UC for evaluation as soon as possible Asked Gm for pt to call us back with his decision as well. Gm with Dr Carranza's office [phone] [facility], Internal Med Per [employer] message: Janet Romero DO to Natanael Shaver [place] 10/31/24 9:13 AM Hi Natanael, We have been trying to reach you by phone regarding your blood thinner. You do not need to take theblood thinner (apixiban) any longer. This is confirmed after discussion with your template cutter Dr. Montez and your sales director Dr. Rice. Please stop taking the apixiban today. Please give us a call or reply to this message if you have any questions or concerns. Janet Romero DO Last read by Natanael Shaver at 10:09AM on 11/19/2024. documented in this encounter Plan of Treatment Upcoming Encounters Date Type Department Care Team (Late st Contact Info) Description 12/05/2024 12:20 PM CDT Appointment [facility] [address] [place] [address] Susan Montez MD [address] [place] [phone] 05/01/2025 3:30 PM EQUINE BREEDER Office Visit [facility] - Internal Med [address] [place] [phone] documented as of this encounter Goals Goal Patient Goal Type Associated Problems Recent Progress Patient-Stated? Author Medication Management General On track( 024 12:38 PM EQUINE BREEDER) No Dominguez Cortez, RN Note: Expected end date: Interventions: Take all medications as prescribed Let your doctor know right away about any changes in your medications Make sure to request a refill of your medication at least one week prior to your last dose documented as of this encounter Visit Diagnoses Not on filedocumented in this encounter Care Teams Holistic Specialist Relationship Specialty Start Date End Date Janet Romero DO [address] [facility] [place] [address] PCP - General Internal Medicine 04/23/24 documented as of this encounter
--- OUTSIDE RECORDS SUMMARY | 2024-11-19 13:51 | XMS_ITS | Clinical Summary ---
Author Organization [facility] [employer] Address [address] [facility] [place] [address] Care Team Providers Care Head Nurse Name Role Phone Janet Romero DO Primary Care Provider Source Comments [facility] [employer],non-owned Affiliates and Associated Physician Practices is amultiple site organization consisting of ambulatory clinics and hospital sitesin [place], [place], [place] and [place]. This disclosure is being madepursuant to the Care Everywhere program and may not contain all information available regarding this patient. Last updated 18.[facility] [employer] Allergies No known active allergies Medications * Be aware that medications may not be up to date on this document. Alwaysverify current medications with the patient. ezetimibe (Zetia) 10 MG tabletIndications: Hyperlipidemia, unspecified hyperlipidemia type Take 1 (one) tablet by mouth once daily 30 tablet 11 5 10/25/19 26 Active apixaban (Eliquis) 5 [...] Encounters Date Type Department Care Team Description 11/19/2024 Telephone [facility] - Internal Med [address] [place] [address] Janet Romero, Swelling Ankle 10/31/2024 Orders Only [facility] INTERNAL MED [address] [place] [address] Janet Romero DO 10/24/2024 2:30 PM CDT Office Visit [facility] - Internal Med [address] [place] [address] Janet Romero DO Saddle embolus of pulmonary artery 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, unspecified chronicity (HCC) (Primary Dx); Leg DVT (deep venous thromboembolism), chronic, bilateral (HCC); Hyperlipidemia, unspecified hyperlipidemia type; Colon cancer screening 10/24/2024 Travel 10/22/2024 Orders Only [facility] INTERNAL MED [address] [place] [address] Janet Romero DO 10/22/2024 Telephone [facility] Physician [facility] - Internal Med [facility] [place] [address] Janet Romero DO Med Question; Echocardiogram 08/27/2024 1:00 PM CDT - 08/27/2024 11:59 PM CDT Hospital Encounter [facility] V[facility]ULAR [address] [place] [address] Pavel Hernandez MD Discharge Disposition: Home or [...] Recorded Patient Health Questionnaire-2 Score 0 10/24/2024 [facility] ional Health - Occupational Stress [...] place to sleep or slept in a mcc (including now)? No 01/21/2024 Sex and Gender [...] CDT Respiratory Rate 17 06/13/2024 3:41 PM SMEARER Oxygen Saturation 95% 10/24/2024 2:41 PM CDT Inhaled Oxygen Concentration - - Weight 100.7 kg (222 lb) 10/24/2024 2:41 PM CDT Height 177.8 cm (5' 10) 10/24/2024 2:41 PM CDT Body Mass Index 31.85 10/24/2024 2:41 PM CDT Plan of Treatment Upcoming Encounters Date Type Department Care Team (Late st Contact Info) Description 12/05/2024 12:20 PM CDT Appointment [facility] [address] [place] [address] Susan Montez MD [address] [place] [address] 05/01/2025 3:30 PM SMEARER Office Visit [facility] - Internal Med [address] [place] [phone] Health Maintenance Due Date Last Done Comments [...] fro m 2020 (Patient Refused) COVID-19 VACCINE (1 - 2023- season) 2025 Postponed from 01/22/2024 (Patient Refused) [...] Management General On track( 024 12:38 PM SMEARER) Dominguez De, RN Note: Expected end date: [...] COMPREHENSIVE METABOLIC PANEL STAT 06/06/2024 3:33 PM SMEARER 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 LIPID PROFILE Routine 04/23/2024 4:15 PM SMEARER Encounter to establish care Saddle embolus of pulmonary artery 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, unspecified chronicity Leg DVT (deep venous thromboembolism), chronic, bilateral HEPATITIS C AB SCREEN RFLX NAAT QUANT Routine 04/23/2024 4:15 PM SMEARER Encounter to establish care Saddle embolus of pulmonary artery 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, unspecified chronicity Leg DVT (deep venous thromboembolism), chronic, bilateral HIV-1 HIV-2 ANTIBODY + HIV P24 AG PANEL Routine 04/23/2024 4:15 PM SMEARER Encounter to establish care Saddle embolus of pulmonary artery 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, unspecified chronicity Leg DVT (deep venous thromboembolism), chronic, bilateral from Last 3 Months or Most Recently Relevant to Health Maintenance Results * [id number] COLOGUARD TEST *Associate with Z12.11 OR Z12.12 Dx Codes* (10/30/2024 8:00 AM CDT) Cologuard Negative Negative [facility] Comment: The Cologuard (TM) test was [...] with both Cologuard and colonoscopy. (Luz Jordan al, N Engl J Med 2014;370(14):7468-6902) The normal value (reference range) for this assay is negative. COLOGUARD RE-SCREENING RECOMMENDATION: Periodic colorectal cancer screening is an important part of preventive healthcare for asymptomatic individuals at average risk for colorectal cancer. Following a negative Cologuard result, the [place] Cancer Society and U.S. Multi-Society Task Force screening guidelines recommend a Cologuard re-screening interval of 3 years. References: [place] [employer] Guideline for Colorectal Cancer Screening: https://www.cancer.org/cancer/rlyfe-bbohaw-zrnkbz/fvyyurpsy-fgneqjeho-erdqhbt/ acs-recommendations.html.; Declan DK, Karolina ROE, Ousmane SilverK, Colorectal Cancer Screening: Recommendations for Physicians and Patients from the U.S. Multi-Society Task Force on Colorectal Cancer Screening , Am J Gastroenterology 2017; 112:2526-5342. TEST DESCRIPTION: Composite algorithmic analysis of stool [...] colonoscopy. (Luz Servin, N Engl J Med 2014;370(14):1354-1382.) Cologuard may produce a false negative or false positive result (no colorectal cancer or precancerous polyp present at colonoscopy follow up). A negative Cologuard test result does not guarantee the absence of CRC or advanced adenoma (pre-cancer). The current Cologuard screening interval is every 3 years. ([place] [employer] and U.S. Multi-Society Task Force). Cologuard performance data in a 10,000 patient pivotal study using colonoscopy as the reference method can be accessed at the following location: www.Bemba.com/results. Additional description of the Cologuard test process, warnings and precautions can be found at www.cologuard.com. Stool STOOL SPECIMEN / Unknown 10/30/2024 8:00 AM CDT 10/31/2024 12:14 PM CDT Adam Gandhi MD LAB - CHEMISTRY ORDERABLES F inal Result Performing Organization Address City/State/[facility] Co de Phone Number [employer] [address] [address] [employer] [address] [place] [address] * VAS Bilateral Venous Duplex Le (08/27/2024 2:14 PM CDT) Anatomical Region Laterality Modality Lower Extremity Intravascular Ul trasound 08/27/2024 1:38 PM CDT Narrative Procedure Note Efrem Flowers MD - 08/28/2024 Pavel Hernandez MD VASCULAR LAB ORDERABLES Edited Result - Final * (ABNORMAL) COMPREHENSIVE METABOLIC PANEL (06/06/2024 3:33 PM SMEARER) BUN 15 7 - 26 mg/dL 06/06/2024 4:46 PM [facility] Creatinine 0.98 0.71 - 1.16 mg/dL 06/06/2024 4:46 PM [facility] Sodium 140 136 - 145 mmol/L 06/06/2024 4:46 PM [facility] Potassium 3.8 3.5 - 4.5 mmol/L 06/06/2024 4:46 PM [facility] Chloride 108(H) 98 - 107 mmol/L 06/06/2024 4:46 PM [facility] CO2 24 22 - 29 mmol/L 06/06/2024 4:46 PM [facility] Glucose 94 70 - 99 mg/dL 06/06/2024 4:46 PM [facility] Calcium 9.4 8.4 - 10.2 mg/dL 06/06/2024 4:46 PM [facility] Protein Total 7.0 6.0 - 8.3 g/dL 06/06/2024 4:46 PM [facility] Albumin 4.3 3.4 - 5.0 g/dL 06/06/2024 4:46 PM [facility] Bilirubin Total 0.6 0.2 - 1.2 mg/dL 06/06/2024 4:46 PM [facility] Alkaline Phosphatase 69 40 - 150 U/L 06/06/2024 4:46 PM [facility] ALT 19 5 - 55 U/L 06/06/2024 4:46 PM [facility] AST 16 5 - 34 U/L 06/06/2024 4:46 PM [facility] Anion Gap 8 6 - 16 06/06/2024 4:46 PM [facility] BUN/Creatinine Ratio 15 7 - 23 06/06/2024 4:46 PM [facility] Osmolality Calculated 291 275 - 295 mOsm/kg 06/06/2024 4:46 PM [facility] Albumin/Globulin Ratio 1.6 1.1 - 2.3 06/06/2024 4:46 PM [facility] eGFR by CKD-EPI 87(L) >=90 mL/min/1.7 3 m2 06/06/2024 4:46 PM [facility] Blood BLOOD SPECIMEN / Unknown Venipuncture / Unknown 06/06/2024 3:33 PM [facility] 06/06/2024 4:20 PM [facility] us Susan Montez MD LAB - CHEMISTRY ORDERABLES Final Result [facility] [address] [place] [address], [facility] [phone] * HEPATITIS C AB SCREEN RFLX NAAT QUANT (04/23/2024 4:15 PM SMEARER) Pathologist [facility] Hepatitis C Antibody Non-react shayan Non-reac tive 04/23/2024 5:27 PM SMEARER [facility] Comment:Hepatitis C Antibody screen indicates no serologic evidence of past or current infection with Hepatitis C Virus. Patients with unexplained liver disease who are immunocompromised or suspected of having acute Hepatitis C infection may benefit from Nucleic Acid Test (SAVANNA) for Hepatitis C Viral RNA to confirm Hepatitis C status. Blood BLOOD SPECIMEN / Unknown Lab Venipuncture / Unknown 04/23/2024 4:15 PM SMEARER 04/23/2024 4:33 PM [facility] LAB - CHEMISTRY ORDERABLES F inal Result Performing Organization Address [facility] Co de Phone Number [address] [address], [place] [phone] * HIV-1 HIV-2 ANTIBODY + HIV P24 AG PANEL (New on 10/06) (04/23/2024 4:15 PM SMEARER) [facility] HIV Antigen/Antibod y 1 & 2 Non-reacti ve Non-react shayan 04/23/2024 5:27 PM SMEARER [facility] Comment:No Laboratory eviden ce of HIV infection. Blood BLOOD SPECIMEN / Unknown Lab Venipuncture / Unknown 04/23/2024 4:15 PM SMEARER 04/23/2024 4:33 PM SMEARER [employer] LAB - CHEMISTRY ORDERABLES F inal Result Performing Organization Address City/[facility]/ZIP Co de Phone Number [address] [address], [place] [phone] * (ABNORMAL) LIPID PROFILE (04/23/2024 4:15 PM SMEARER) [facility] Cholesterol Total 265(H) <200 mg/dL 04/23/2024 5:18 PM SMEARER [facility] HDL 41 >40 mg/dL 04/23/2024 5:18 PM SMEARER [facility] Comment: ATP III Classification of HDL Cholesterol: <40 mg/dL: Considered a major risk factor. >60 mg/dL: Considered a negative risk factor. LDL Calculated 181(H) <100 mg/dL 04/23/2024 5:18 PM [facility] Comment: ATP III Classification of LDL Cholesterol: <100 mg/dL: Optimal 100 - 129 mg/dL: Near Optimal/Above Optimal 130 - 159 mg/dL: Borderline High 160 - 189 mg/dL: High >190 mg/dL: Very High Triglycerides 214(H) <150 mg/dL 04/23/2024 5:18 PM [facility] Comment: ATP III Classification of Triglycerides: <150 mg/dL: Normal 150 - 199 mg/dL: Borderline High 200 - 400 mg/dL: High >500 mg/dL: Very High Blood BLOOD SPECIMEN / Unknown Lab Venipuncture / Unknown 04/23/2024 4:15 PM SMEARER 04/23/2024 4:47 PM SMEARER Genesis Thurman DO LAB - CHEMISTRY ORDERABLES F inal Result [facility] [address] [place] [address], [facility] [phone] from Last 3 Months or Most Recently Relevant to Health Maintenance Insurance [facility] Advance Directives * Full Code (Latest Code Status on File) Date Activated Date Inactivated Comments 01/20/2024 7:29 PM 01/23/2024 3:13 PM Care Teams Head Nurse Relationship Specialty Start Date End Date Janet Romero DO [address] [facility] [place] [address] PCP - General Internal Medicine 04/23/24
--- NOTE | 2024-11-19 14:25 | ED_ITS ---
HPI - Extremity Injury (Lower) General Chief Complaint: Extremity Injury, Lower <Michelle Osman APRN - Last Filed: 11/19/24 18:38> Stated Complaint: Pain in RT lower leg-DVT history <Michelle Osman APRN - Last Filed: 11/19/24 18:38> Time Seen by Provider: 11/19/24 14:15 <Michelle Osman APRN - Last Filed: 11/19/24 18:38> Focused HPI: Patient is a 64-year-old male who reports to the ER with concerns of right lower extremity swelling and pain. He was treated for saddle PE approximately 6 months ago. Patient reports he was taken off his blood thinners approximately 2 weeks ago by a healthcare provider. He endorses mild shortness of breath. Patient reports the symptoms started approximately 3 days ago. He denies any recent fevers, wheezing, palpitations, or chest pain. GENERAL: Well-appearing, well-nourished, and in no acute distress. HEAD: Normocephalic, atraumatic. CHEST: Clear to auscultation. ?No respiratory distress. HEART: Regular rate and rhythm.? NEURO: ?Alert and oriented x3. SKIN: RLE + edema closer to ankle, -Melissa's sign Patient screened in triage and initial orders placed.? ?Additional care and disposition to be based upon?diagnostic testing and treatment. <Michelle Osman APRN - Last Filed: 11/19/24 18:38> Related Data Allergies/Adverse Reactions: Allergies Allergy/AdvReac Type Severity Reaction Status Date / Time No Known Allergies Allergy Unknown Verified 11/19/24 14:00 <Michelle Osman APRN - Last Filed: 11/19/24 18:38> Review of Systems 2 Review of Systems: All systems reviewed & are unremarkable except as noted in HPI and below <Sybil Marroquin PA-C - Last Filed: 11/20/24 00:49> PMFSH Past Medical History Medical History: Medical History GERD (gastroesophageal reflux disease) History of blood clots <Michelle Osman APRN - Last Filed: 11/19/24 18:38> Surgical History Surgical History: Surgical History History of lung surgery blood clots in lungs History of shoulder surgery <Michelle Osman APRN - Last Filed: 11/19/24 18:38> Family History Family History: Family History Mother Dementia Cerebrovascular accident Sibling Primary cancer of blood vessel Heart disease Cancer Father Family history of Alzheimer's disease, Onset Age: 74 Patient's father is Sibling Acute myocardial infarction <Michelle Osman APRN - Last Filed: 11/19/24 18:38> Social History Social History: Social History Smoking status: Former smoker Tobacco type: cigarettes Second hand tobacco smoke exposure: No Smoking end date: 05/23/76 Alcohol intake: former Substance use: never Substance use type: does not use Current Housing: Decline to Answer Concerned About Future Housing: Decline to Answer Difficulty Paying Gas/Electric Bills: Decline to Answer Difficulty Paying for Meds: Decline to Answer Currently Unemployed: Decline to Answer Education: Decline to Answer Difficulty w/ Childcare or Family Care: Decline to Answer Living arrangements: with family 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 Gender identity (if verbalized by the patient): Male Spiritual care concerns: No <Michelle Osman, FARHAD - Last Filed: 11/19/24 18:38> Exam 2 Narrative: GENERAL: Well-appearing, well-nourished, and in no acute distress. HEAD: Normocephalic, atraumatic. EYES: EOMI. CHEST: Clear to auscultation. No respiratory distress. No wheezes rales or rhonchi HEART: Regular rate and rhythm. No murmur heard. Normal peripheral pulses. EXTREMITIES: Normal range of motion. No edema. Normal DP pulses SKIN: Warm, dry, no rash. NEURO: No focal deficits. Alert and oriented x3. PSYCH: Normal mood and affect <Sybil Marroquin PA-C - Last Filed: 11/20/24 00:49> Course Course Emergency Course: Patient updated on his workup and recommendation for transfer for higher level care <Sybil Marroquin PA-C - Last Filed: 11/20/24 00:49> EQUIPMENT SCHEDULER/PA Physician Supervision I was made aware that this patient was being transferred. I was available for consultation while they were in the emergency department but did not physically examine them and was otherwise not directly involved in their care < Nhi Morales MD - Last Filed: 11/20/24 17:57> Consultations Consultation #1: Spoke with Dr. Ramírez, [facility] about patient and workup who accepts patient as transfer <Sybil Marroquin PA-C - Last Filed: 11/20/24 00:49> Date: 11/19/24 <Sybil Marroquin PA-C - Last Filed: 11/20/24 00:49> Vital Signs Vital signs: Vital Signs Temperature 98.3 F 11/19/24 14:01 Pulse Rate 82 11/19/24 14:01 Respiratory Rate 20 11/19/24 14:01 Blood Pressure 117/74 11/19/24 14:01 Pulse Oximetry 99 11/19/24 14:01 Oxygen Delivery Room Air 11/19/24 14:01 Temperature 97.9 F 11/20/24 01:12 Pulse Rate 88 11/20/24 01:12 Respiratory Rate 17 11/20/24 01:12 Blood Pressure 119/51 L 11/20/24 01:12 Pulse Oximetry 97 11/20/24 01:12 Oxygen Delivery Room Air 11/19/24 16:59 <Michelle Osman, W[employer]OWS LAP[employer] TECHNICIAN - Last Filed: 11/19/24 18:38> Vital Signs Temperature 98.3 F 11/19/24 14:01 Pulse Rate 82 11/19/24 14:01 Respiratory Rate 20 11/19/24 14:01 Blood Pressure 117/74 11/19/24 14:01 Pulse Oximetry 99 11/19/24 14:01 Oxygen Delivery Room Air 11/19/24 14:01 Temperature 97.9 F 11/20/24 01:12 Pulse Rate 88 11/20/24 01:12 Respiratory Rate 17 11/20/24 01:12 Blood Pressure 119/51 L 11/20/24 01:12 Pulse Oximetry 97 11/20/24 01:12 Oxygen Delivery Room Air 11/19/24 16:59 <Sybil Marroquin PA-C - Last Filed: 11/20/24 00:49> Vital Signs Temperature 98.3 F 11/19/24 14:01 Pulse Rate 82 11/19/24 14:01 Respiratory Rate 20 11/19/24 14:01 Blood Pressure 117/74 11/19/24 14:01 Pulse Oximetry 99 11/19/24 14:01 Oxygen Delivery Room Air 11/19/24 14:01 Temperature 97.9 F 11/20/24 01:12 Pulse Rate 88 11/20/24 01:12 Respiratory Rate 17 11/20/24 01:12 Blood Pressure 119/51 L 11/20/24 01:12 Pulse Oximetry 97 11/20/24 01:12 Oxygen Delivery Room Air 11/19/24 16:59 <Nhi Morales MD - Last Filed: 11/20/24 17:57> MDM - Extremity Injury (Lower) MDM Narrative Medical decision making narrative: 1645-Patient returned from CT scan and was complaining of itchy throat and mild shortness of breath. He reports he has never had a reaction to IV contrast in the past. Patient given Benadryl IV, Decadron IV, Pepcid IV, and a nebulizer treatment. His symptoms resolved following medication administration. <Michelle Osman, FARHAD - Last Filed: 11/19/24 18:38> 1645-Patient returned from CT scan and was complaining of itchy throat and mild shortness of breath. He reports he has never had a reaction to IV contrast in the past. Patient given Benadryl IV, Decadron IV, Pepcid IV, and a nebulizer treatment. His symptoms resolved following medication administration. Patient presents the emergency department for right lower extremity pain and swelling. Also reports mild shortness of breath. History of DVT/PE. Patient's vitals are stable. Cbc and metabolic panel without concerning findings. Right lower extremity venous Doppler shows DVT in the superficial femoral and popliteal veins. CTA chest shows occlusive and nonocclusive segmental subsegmental pulmonary emboli involving right upper and lower lobes. Evidence of right heart strain. Moderate clot volume. Small pericardial effusion. Trace right pleural effusion. Patient recently with history of PE treated with thrombectomy at [facility], will be transferred for higher level of care for potential need for same. Patient started on heparin drip. Transported via ambulance for continued treatment/monitoring <Sybil Marroquin PA-C - Last Filed: 11/20/24 00:49> Lab Data Attestation: I reviewed the patient's lab results. <Sybil Marroquin PA-C - Last Filed: 11/20/24 00:49> Result diagrams: 11/20/24 00:41 11/19/24 15:09 <Michelle Osman APRN - Last Filed: 11/19/24 18:38> Labs: Lab Results 11/19/24 11/19/24 11/19/24 Range/Units 15:09 15:09 15:09 WBC 10.0 (4.5-10.0) K/mm3 RBC 5.13 (4.6-6.20) M/mm3 Hgb 15.9 (14.0-18.0) g/dL Hct 46.5 (42.0-52.0) % MCV 90.6 (80-100) fl MCH 31.0 (26-34) pg MCHC 34.2 (32-36) g/dl RDW 13.0 (11.5-14.5) % Plt Count 254 (150-375) k/mm3 MPV 9.8 (7.4-10.4) fl Immature Gran % (Auto) 0.4 (0-0.5) % Neut % (Auto) 71.1 (45.5-73.1) % Lymph % (Auto) 18.2 L (18.3-44.2) % [place] % (Auto) 8.8 H (2.6-8.5) % Eos % (Auto) 1.1 (0-4.4) % Baso % (Auto) 0.4 (0.2-1.2) % Lymph # (Auto) 1.81 (0.9-3.2) K/mm3 [place] # (Auto) 0.9 H (0.1-0.6) K/mm3 Eos # (Auto) 0.1 (0-0.3) K/mm3 Baso # (Auto) 0.0 (0.0-0.1) K/mm3 Abs Immat Gran (auto) 0.04 H (0.00-0.031) K/mm3 Absolute Neuts (auto) 7.1 H (1.3-6.7) K/mm3 Absolute Nucleated RBC 0.000 (0.0-0.012) K/mm3 Nucleated RBC % 0.0 (0.0-0.2) % PT 16.1 H (11.1-14.7) Seconds INR 1.3 APTT 32.6 (22.3-36.8) Seconds D-Dimer Cancelled 0.85 H Sodium 140 (137-145) mmol/L Potassium 3.8 (3.4-5.0) mmol/L Chloride 105 (98-107) mmol/L Carbon Dioxide 24 (22-30) mmol/L Anion Gap 11 (4-12) mmol/L BUN 15 (9-20) mg/dL Creatinine 1.07 (0.7-1.3) mg/dL Estim Creat Clear Calc 74 ml/min Estimated GFR > 60 (59 - ) Glucose 96 (65-110) mg/dL Calcium 9.6 (8.4-10.2) mg/dL Magnesium 2.0 Cancelled (1.6-2.3) mg/dL Total Bilirubin 0.9 (0.2-1.3) mg/dL AST 36 (17-59) U/L ALT 52 H (6-50) U/L Alkaline Phosphatase 61 (38-126) U/L Troponin I < 0.012 (0.000-0.034) ng/mL NT-Pro-B Natriuret Pep 40 (19.9-100) pg/mL Total Protein 7.4 (6.3-8.2) g/dL Albumin 4.4 (3.5-5.1) g/dL 11/20/24 11/20/24 Range/Units 00:41 00:42 WBC 10.2 H (4.5-10.0) K/mm3 RBC 5.00 (4.6-6.20) M/mm3 Hgb 15.6 (14.0-18.0) g/dL Hct 46.0 (42.0-52.0) % MCV 92.0 (80-100) fl MCH 31.2 (26-34) pg MCHC 33.9 (32-36) g/dl RDW 13.2 (11.5-14.5) % Plt Count 229 (150-375) k/mm3 MPV 10.0 (7.4-10.4) fl Immature Gran % (Auto) 0.4 (0-0.5) % Neut % (Auto) 92.9 H (45.5-73.1) % Lymph % (Auto) 5.2 L (18.3-44.2) % [place] % (Auto) 1.4 L (2.6-8.5) % Eos % (Auto) 0.0 (0-4.4) % Baso % (Auto) 0.1 L (0.2-1.2) % Lymph # (Auto) 0.53 L (0.9-3.2) K/mm3 [place] # (Auto) 0.1 (0.1-0.6) K/mm3 Eos # (Auto) 0.0 (0-0.3) K/mm3 Baso # (Auto) 0.0 (0.0-0.1) K/mm3 Abs Immat Gran (auto) 0.04 H (0.00-0.031) K/mm3 Absolute Neuts (auto) 9.4 H (1.3-6.7) K/mm3 Absolute Nucleated RBC 0.000 (0.0-0.012) K/mm3 Nucleated RBC % 0.0 (0.0-0.2) % PT 16.9 H (11.1-14.7) Seconds INR 1.4 APTT 157.6 H (22.3-36.8) Seconds D-Dimer Sodium (137-145) mmol/L Potassium (3.4-5.0) mmol/L Chloride (98-107) mmol/L Carbon Dioxide (22-30) mmol/L Anion Gap (4-12) mmol/L BUN (9-20) mg/dL Creatinine (0.7-1.3) mg/dL Estim Creat Clear Calc ml/min Estimated GFR (59 - ) Glucose (65-110) mg/dL Calcium (8.4-10.2) mg/dL Magnesium (1.6-2.3) mg/dL Total Bilirubin (0.2-1.3) mg/dL AST (17-59) U/L ALT (6-50) U/L Alkaline Phosphatase (38-126) U/L Troponin I (0.000-0.034) ng/mL NT-Pro-B Natriuret Pep (19.9-100) pg/mL Total Protein (6.3-8.2) g/dL Albumin (3.5-5.1) g/dL <Michelle MatamorosAleksandar Osman, WINDOWS LAPTOP TECHNICIAN - Last Filed: 11/19/24 18:38> Lab Results 11/19/24 11/19/24 11/19/24 Range/Units 15:09 15:09 15:09 WBC 10.0 (4.5-10.0) K/mm3 RBC 5.13 (4.6-6.20) M/mm3 Hgb 15.9 (14.0-18.0) g/dL Hct 46.5 (42.0-52.0) % MCV 90.6 (80-100) fl MCH 31.0 (26-34) pg MCHC 34.2 (32-36) g/dl RDW 13.0 (11.5-14.5) % Plt Count 254 (150-375) k/mm3 MPV 9.8 (7.4-10.4) fl Immature Gran % (Auto) 0.4 (0-0.5) % Neut % (Auto) 71.1 (45.5-73.1) % Lymph % (Auto) 18.2 L (18.3-44.2) % [place] % (Auto) 8.8 H (2.6-8.5) % Eos % (Auto) 1.1 (0-4.4) % Baso % (Auto) 0.4 (0.2-1.2) % Lymph # (Auto) 1.81 (0.9-3.2) K/mm3 [place] # (Auto) 0.9 H (0.1-0.6) K/mm3 Eos # (Auto) 0.1 (0-0.3) K/mm3 Baso # (Auto) 0.0 (0.0-0.1) K/mm3 Abs Immat Gran (auto) 0.04 H (0.00-0.031) K/mm3 Absolute Neuts (auto) 7.1 H (1.3-6.7) K/mm3 Absolute Nucleated RBC 0.000 (0.0-0.012) K/mm3 Nucleated RBC % 0.0 (0.0-0.2) % PT 16.1 H (11.1-14.7) Seconds INR 1.3 APTT 32.6 (22.3-36.8) Seconds D-Dimer Cancelled 0.85 H Sodium 140 (137-145) mmol/L Potassium 3.8 (3.4-5.0) mmol/L Chloride 105 (98-107) mmol/L Carbon Dioxide 24 (22-30) mmol/L Anion Gap 11 (4-12) mmol/L BUN 15 (9-20) mg/dL Creatinine 1.07 (0.7-1.3) mg/dL Estim Creat Clear Calc 74 ml/min Estimated GFR > 60 (59 - ) Glucose 96 (65-110) mg/dL Calcium 9.6 (8.4-10.2) mg/dL Magnesium 2.0 Cancelled (1.6-2.3) mg/dL Total Bilirubin 0.9 (0.2-1.3) mg/dL AST 36 (17-59) U/L ALT 52 H (6-50) U/L Alkaline Phosphatase 61 (38-126) U/L Troponin I < 0.012 (0.000-0.034) ng/mL NT-Pro-B Natriuret Pep 40 (19.9-100) pg/mL Total Protein 7.4 (6.3-8.2) g/dL Albumin 4.4 (3.5-5.1) g/dL 11/20/24 11/20/24 Range/Units 00:41 00:42 WBC 10.2 H (4.5-10.0) K/mm3 RBC 5.00 (4.6-6.20) M/mm3 Hgb 15.6 (14.0-18.0) g/dL Hct 46.0 (42.0-52.0) % MCV 92.0 (80-100) fl MCH 31.2 (26-34) pg MCHC 33.9 (32-36) g/dl RDW 13.2 (11.5-14.5) % Plt Count 229 (150-375) k/mm3 MPV 10.0 (7.4-10.4) fl Immature Gran % (Auto) 0.4 (0-0.5) % Neut % (Auto) 92.9 H (45.5-73.1) % Lymph % (Auto) 5.2 L (18.3-44.2) % [place] % (Auto) 1.4 L (2.6-8.5) % Eos % (Auto) 0.0 (0-4.4) % Baso % (Auto) 0.1 L (0.2-1.2) % Lymph # (Auto) 0.53 L (0.9-3.2) K/mm3 [place] # (Auto) 0.1 (0.1-0.6) K/mm3 Eos # (Auto) 0.0 (0-0.3) K/mm3 Baso # (Auto) 0.0 (0.0-0.1) K/mm3 Abs Immat Gran (auto) 0.04 H (0.00-0.031) K/mm3 Absolute Neuts (auto) 9.4 H (1.3-6.7) K/mm3 Absolute Nucleated RBC 0.000 (0.0-0.012) K/mm3 Nucleated RBC % 0.0 (0.0-0.2) % PT 16.9 H (11.1-14.7) Seconds INR 1.4 APTT 157.6 H (22.3-36.8) Seconds D-Dimer Sodium (137-145) mmol/L Potassium (3.4-5.0) mmol/L Chloride (98-107) mmol/L Carbon Dioxide (22-30) mmol/L Anion Gap (4-12) mmol/L BUN (9-20) mg/dL Creatinine (0.7-1.3) mg/dL Estim Creat Clear Calc ml/min Estimated GFR (59 - ) Glucose (65-110) mg/dL Calcium (8.4-10.2) mg/dL Magnesium (1.6-2.3) mg/dL Total Bilirubin (0.2-1.3) mg/dL AST (17-59) U/L ALT (6-50) U/L Alkaline Phosphatase (38-126) U/L Troponin I (0.000-0.034) ng/mL NT-Pro-B Natriuret Pep (19.9-100) pg/mL Total Protein (6.3-8.2) g/dL Albumin (3.5-5.1) g/dL <Sybil Marroquin PA-C - Last Filed: 11/20/24 00:49> Lab Results 11/19/24 11/19/24 11/19/24 Range/Units 15:09 15:09 15:09 WBC 10.0 (4.5-10.0) K/mm3 RBC 5.13 (4.6-6.20) M/mm3 Hgb 15.9 (14.0-18.0) g/dL Hct 46.5 (42.0-52.0) % MCV 90.6 (80-100) fl MCH 31.0 (26-34) pg MCHC 34.2 (32-36) g/dl RDW 13.0 (11.5-14.5) % Plt Count 254 (150-375) k/mm3 MPV 9.8 (7.4-10.4) fl Immature Gran % (Auto) 0.4 (0-0.5) % Neut % (Auto) 71.1 (45.5-73.1) % Lymph % (Auto) 18.2 L (18.3-44.2) % [place] % (Auto) 8.8 H (2.6-8.5) % Eos % (Auto) 1.1 (0-4.4) % Baso % (Auto) 0.4 (0.2-1.2) % Lymph # (Auto) 1.81 (0.9-3.2) K/mm3 [place] # (Auto) 0.9 H (0.1-0.6) K/mm3 Eos # (Auto) 0.1 (0-0.3) K/mm3 Baso # (Auto) 0.0 (0.0-0.1) K/mm3 Abs Immat Gran (auto) 0.04 H (0.00-0.031) K/mm3 Absolute Neuts (auto) 7.1 H (1.3-6.7) K/mm3 Absolute Nucleated RBC 0.000 (0.0-0.012) K/mm3 Nucleated RBC % 0.0 (0.0-0.2) % PT 16.1 H (11.1-14.7) Seconds INR 1.3 APTT 32.6 (22.3-36.8) Seconds D-Dimer Cancelled 0.85 H Sodium 140 (137-145) mmol/L Potassium 3.8 (3.4-5.0) mmol/L Chloride 105 (98-107) mmol/L Carbon Dioxide 24 (22-30) mmol/L Anion Gap 11 (4-12) mmol/L BUN 15 (9-20) mg/dL Creatinine 1.07 (0.7-1.3) mg/dL Estim Creat Clear Calc 74 ml/min Estimated GFR > 60 (59 - ) Glucose 96 (65-110) mg/dL Calcium 9.6 (8.4-10.2) mg/dL Magnesium 2.0 Cancelled (1.6-2.3) mg/dL Total Bilirubin 0.9 (0.2-1.3) mg/dL AST 36 (17-59) U/L ALT 52 H (6-50) U/L Alkaline Phosphatase 61 (38-126) U/L Troponin I < 0.012 (0.000-0.034) ng/mL NT-Pro-B Natriuret Pep 40 (19.9-100) pg/mL Total Protein 7.4 (6.3-8.2) g/dL Albumin 4.4 (3.5-5.1) g/dL 11/20/24 11/20/24 Range/Units 00:41 00:42 WBC 10.2 H (4.5-10.0) K/mm3 RBC 5.00 (4.6-6.20) M/mm3 Hgb 15.6 (14.0-18.0) g/dL Hct 46.0 (42.0-52.0) % MCV 92.0 (80-100) fl MCH 31.2 (26-34) pg MCHC 33.9 (32-36) g/dl RDW 13.2 (11.5-14.5) % Plt Count 229 (150-375) k/mm3 MPV 10.0 (7.4-10.4) fl Immature Gran % (Auto) 0.4 (0-0.5) % Neut % (Auto) 92.9 H (45.5-73.1) % Lymph % (Auto) 5.2 L (18.3-44.2) % [place] % (Auto) 1.4 L (2.6-8.5) % Eos % (Auto) 0.0 (0-4.4) % Baso % (Auto) 0.1 L (0.2-1.2) % Lymph # (Auto) 0.53 L (0.9-3.2) K/mm3 [place] # (Auto) 0.1 (0.1-0.6) K/mm3 Eos # (Auto) 0.0 (0-0.3) K/mm3 Baso # (Auto) 0.0 (0.0-0.1) K/mm3 Abs Immat Gran (auto) 0.04 H (0.00-0.031) K/mm3 Absolute Neuts (auto) 9.4 H (1.3-6.7) K/mm3 Absolute Nucleated RBC 0.000 (0.0-0.012) K/mm3 Nucleated RBC % 0.0 (0.0-0.2) % PT 16.9 H (11.1-14.7) Seconds INR 1.4 APTT 157.6 H (22.3-36.8) Seconds D-Dimer Sodium (137-145) mmol/L Potassium (3.4-5.0) mmol/L Chloride (98-107) mmol/L Carbon Dioxide (22-30) mmol/L Anion Gap (4-12) mmol/L BUN (9-20) mg/dL Creatinine (0.7-1.3) mg/dL Estim Creat Clear Calc ml/min Estimated GFR (59 - ) Glucose (65-110) mg/dL Calcium (8.4-10.2) mg/dL Magnesium (1.6-2.3) mg/dL Total Bilirubin (0.2-1.3) mg/dL AST (17-59) U/L ALT (6-50) U/L Alkaline Phosphatase (38-126) U/L Troponin I (0.000-0.034) ng/mL NT-Pro-B Natriuret Pep (19.9-100) pg/mL Total Protein (6.3-8.2) g/dL Albumin (3.5-5.1) g/dL <Nhi Morales MD - Last Filed: 11/20/24 17:57> Imaging Data Radiologist's impression: ITS Impressions Venous Doppler Study 11/19/24 15:11 IMPRESSION: DVT in the right lower extremity. Michelle Osman APRN was notified with the result patient at 3:17 p.m. on November 09 2024. Chest CTA 11/19/24 16:44 IMPRESSION: Occlusive and nonocclusive segmental and subsegmental pulmonary emboli involving the right upper and right lower lobes. RV/LV ratio less than 1, however there is intraventricular flattening and hepatic vein reflux as can occur with right heart strain. Moderate clot volume. Small pericardial effusion. Trace right pleural effusion. <Sybil Marroquin PA-C - Last Filed: 11/20/24 00:49> Critical Care Time Critical Care Time Critical Care Time: Yes <Sybil Marroquin PA-C - Last Filed: 11/20/24 00:49> Total Critical Care Time: 35 <Sybil Marroquin PA-C - Last Filed: 11/20/24 00:49> Discharge Plan Discharge Clinical Impression: Pulmonary embolism Qualifiers: Pulmonary embolism type: multiple subsegmental (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) Q ualified Code(s): I26.94 - Multiple subsegmental thrombotic pulmonary emboli 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 Acute deep vein thrombosis (DVT) of right lower extremity Qualifiers: Affected thrombotic vein of extremity: popliteal Qualified Code(s): I82.431 - Acute embolism and thrombosis of right popliteal vein <Michelle Osman APRN - Last Filed: 11/19/24 18:38> Patient Disposition: Acute Care Hospital <Michelle Osman APRN - Last Filed: 11/19/24 18:38> Condition: Serious <Michelle Osman APRN - Last Filed: 11/19/24 18:38> Patient Language: Vietnamese <Michelle Osman APRN - Last Filed: 11/19/24 18:38> Prescriptions: No Action pantoprazole 20 mg tablet,delayed release (DR/EC) 20 mg PO QAM Qty: 30 4RF <Michelle Osman APRN - Last Filed: 11/19/24 18:38> Follow-up/Referrals: Baltazar Carranza, [Primary Care Provider] - <Michelle Osman, FARHAD - Last Filed: 11/19/24 18:38>
[2024-11-19 15:22] LABS: Hematocrit 46.5 % (42.0-52.0); Hemoglobin 15.9 g/dL (14.0-18.0); Immature Granulocyte Percent A 0.4 % (0-0.5); Lymphocytes Absolute Auto 1.81 K/mm3 (0.9-3.2); Mean Corpuscular HGB Conc 34.2 g/dl (32-36); Mean Corpuscular Hemoglobin 31.0 pg (26-34); Mean Corpuscular Volume 90.6 fl (80-100); Nucleated Red Blood Cells Absolute Auto 0.000 K/mm3 (0.0-0.012); Nucleated Red Blood Cells Perc 0.0 % (0.0-0.2); Platelet Count Result 254 k/mm3 (150-375); Red Blood Count 5.13 M/mm3 (4.6-6.20); White Blood Count 10.0 K/mm3 (4.5-10.0)
[2024-11-19 15:37] LABS: Alanine Aminotransferase 52 U/L (6-50); Albumin Level 4.4 g/dL (3.5-5.1); Alkaline Phosphatase 61 U/L (38-126); Anion Gap 11 mmol/L (4-12); Aspartate Amino Transferase 36 U/L (17-59); Bilirubin,Total 0.9 mg/dL (0.2-1.3); Blood Urea Nitrogen 15 mg/dL (9-20); Calcium 9.6 mg/dL (8.4-10.2); Carbon Dioxide 24 mmol/L (22-30); Chloride 105 mmol/L (98-107); Estimated CRCL calculation 74 ml/min; Estimated Glomerular Filt Rate > 60; Glucose 96 mg/dL (65-110); Magnesium 2.0 mg/dL (1.6-2.3); Potassium 3.8 mmol/L (3.4-5.0); Sodium 140 mmol/L (137-145); Total Protein 7.4 g/dL (6.3-8.2)
[2024-11-19 15:48] LABS: INR 1.3; Prothrombin Time 16.1 Seconds (11.1-14.7)
[2024-11-19 15:49] LABS: Partial Thromboplastin Time 32.6 Seconds (22.3-36.8)
[2024-11-19] MEDS: FAMOTIDINE 20 MG/2 ML VIAL IV PUSH (16:48)
[2024-11-19] MEDS: dexAMETHasone SOD PHOS INJ 10 MG/ML 1 ML VIAL IV PUSH (16:48)
[2024-11-19] MEDS: SODIUM CHLORIDE 0.9% IV 1,000 ML 999 ML IV CONT (16:48)
[2024-11-19] MEDS: ALBUTEROL SULFATE NEB 2.5 MG/3 ML INH 10 MG INHALATION (17:13)
--- OUTSIDE RECORDS SUMMARY | 2024-11-19 17:21 | XMS_ITS | Clinical Summary ---
Author Organization [facility] Address [address] [facility] [place] [address] Care Team Providers Care Home Visitor Name Role Phone Janet Romero DO Primary Care Provider Source Comments [facility] [employer],non-owned Affiliates and Associated Physician Practices is amultiple site organization consisting of ambulatory clinics and hospital sitesin [place]. This disclosure is being madepursuant to the Care Everywhere program and may not contain all information available regarding this patient. Last updated 18.[facility] Allergies No known active allergies Medications * [...] Type Department Care Team Description 11/19/2024 Telephone [facility] - Internal Med [address] [place] [address] Janet Romero, Swelling Ankle 10/31/2024 Orders Only [facility] PHYS INTERNAL MED [address] [place] [address] Janet Romero DO 10/24/2024 2:30 PM CDT Office Visit [facility] - Internal Med [address] [place] [address] Janet Romero DO Saddle embolus of pulmonary artery 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, unspecified chronicity (HCC) (Primary Dx); Leg DVT (deep venous thromboembolism), chronic, bilateral (HCC); Hyperlipidemia, unspecified hyperlipidemia type; Colon cancer screening 10/24/2024 Travel 10/22/2024 Orders Only [facility] PH[facility] INTERNAL MED [address] [place] [address] Janet Romero DO 10/22/2024 Telephone [facility] Physician [facility] - Internal Med [facility] [place] [address] Janet Romero DO Med Question; Echocardiogram 08/27/2024 1:00 PM CDT - 08/27/2024 11:59 PM CDT Hospital Encounter [facility] VASCULAR [address] [place] [address] Pavel Hernandez MD Discharge Disposition: Home or [...] Recorded Patient Health Questionnaire-2 Score 0 10/24/2024 [facility] of Occupat ional Health - Occupational Stress [...] CDT Respiratory Rate 17 06/13/2024 3:41 PM UI ARCHITECT Oxygen Saturation 95% 10/24/2024 2:41 PM CDT Inhaled Oxygen Concentration - - Weight 100.7 kg (222 lb) 10/24/2024 2:41 PM CDT Height 177.8 cm (5' 10) 10/24/2024 2:41 PM CDT Body Mass Index 31.85 10/24/2024 2:41 PM CDT Plan of Treatment Upcoming Encounters Date Type Department Care Team (Late st Contact Info) Description 12/05/2024 12:20 PM CDT Appointment [facility] [address] [place] [address] Susan Montez MD [address] [place] [address] 05/01/2025 3:30 PM UI ARCHITECT Office Visit [facility] - Internal Med [address] [place] [phone] Health Maintenance Due Date Last Done [...] Management General On track( 024 12:38 PM UI ARCHITECT) Dominguez De, RN Note: Expected end date: [...] COMPREHENSIVE METABOLIC PANEL STAT 06/06/2024 3:33 PM UI ARCHITECT 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 LIPID PROFILE Routine 04/23/2024 4:15 PM UI ARCHITECT Encounter to establish care Saddle embolus of pulmonary artery 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, unspecified chronicity Leg DVT (deep venous thromboembolism), chronic, bilateral HEPATITIS C AB SCREEN RFLX NAAT QUANT Routine 04/23/2024 4:15 PM UI ARCHITECT Encounter to establish care Saddle embolus of pulmonary artery 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, unspecified chronicity Leg DVT (deep venous thromboembolism), chronic, bilateral HIV-1 HIV-2 ANTIBODY + HIV P24 AG PANEL Routine 04/23/2024 4:15 PM UI ARCHITECT Encounter to establish care Saddle embolus of pulmonary artery 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, unspecified chronicity Leg DVT (deep venous thromboembolism), chronic, bilateral from Last 3 Months or Most Recently Relevant to Health Maintenance Results * [id number] COLOGUARD TEST *Associate with Z12.11 OR Z12.12 Dx Codes* (10/30/2024 8:00 AM CDT) Cologuard Negative Negative [facility] Comment: The Cologuard (TM) test [...] (Luz Jordan al, N Engl J Med 2014;370(14):9582-6553) The normal value (reference range) for this assay is negative. COLOGUARD RE-SCREENING RECOMMENDATION: Periodic colorectal cancer screening is an important part of preventive healthcare for asymptomatic individuals at average risk for colorectal cancer. Following a negative Cologuard result, the [employer] and U.S. Multi-Society Task Force screening guidelines recommend a Cologuard re-screening interval of 3 years. References: [employer] Guideline for Colorectal Cancer Screening: https://www.cancer.org/cancer/lctnv-wpqzil-ujcpbd/ejyjgwgfe-wnhpkrtek-pqidyff/ acs-recommendations.html.; Declan DK, Karolina ROE, Ousmane SilverK, Colorectal Cancer Screening: Recommendations for Physicians and Patients from the U.S. Multi-Society Task Force on Colorectal Cancer Screening , Am J Gastroenterology 2017; 112:7565-9700. TEST DESCRIPTION: Composite algorithmic analysis of stool [...] colonoscopy. (Luz Servin, N Engl J Med 2014;370(14):9584-0324.) Cologuard may produce a false negative or false positive result (no colorectal cancer or precancerous polyp present at colonoscopy follow up). A negative Cologuard test result does not guarantee the absence of CRC or advanced adenoma (pre-cancer). The current Cologuard screening interval is every 3 years. ([employer] Society and U.S. Multi-Society Task Force). Cologuard performance data in a 10,000 patient pivotal study using colonoscopy as the reference method can be accessed at the following location: www.[employer].com/results. Additional description of the Cologuard test process, warnings and precautions can be found at www.cologuard.com. Stool STOOL SPECIMEN / Unknown 10/30/2024 8:00 AM CDT 10/31/2024 12:14 PM CDT Adam Gandhi MD LAB - CHEMISTRY ORDERABLES F inal Result Performing Organization Address City/State/[facility] Co de Phone Number [facility] [address] [address] [facility] [address] [place] [address] * VAS Bilateral Venous Duplex Le (08/27/2024 2:14 PM CDT) Anatomical Region Laterality Modality Lower Extremity Intravascular Ul trasound 08/27/2024 1:38 PM CDT Narrative Procedure Note Efrem Flowers MD - 08/28/2024 Pavel Hernandez MD VASCULAR LAB ORDERABLES Edited Result - Final * (ABNORMAL) COMPREHENSIVE METABOLIC PANEL (06/06/2024 3:33 PM UI ARCHITECT) BUN 15 7 - 26 mg/dL 06/06/2024 4:46 PM [facility] Creatinine 0.98 0.71 - 1.16 mg/dL 06/06/2024 4:46 PM [facility] Sodium 140 136 - 145 mmol/L 06/06/2024 4:46 PM [facility] Potassium 3.8 3.5 - 4.5 mmol/L 06/06/2024 4:46 PM [facility] Chloride 108(H) 98 - 107 mmol/L 06/06/2024 4:46 PM [facility] CO2 24 22 - 29 mmol/L 06/06/2024 4:46 PM [facility] Glucose 94 70 - 99 mg/dL 06/06/2024 4:46 PM [facility] Calcium 9.4 8.4 - 10.2 mg/dL 06/06/2024 4:46 PM [facility] Protein Total 7.0 6.0 - 8.3 g/dL 06/06/2024 4:46 PM [facility] Albumin 4.3 3.4 - 5.0 g/dL 06/06/2024 4:46 PM [facility] Bilirubin Total 0.6 0.2 - 1.2 mg/dL 06/06/2024 4:46 PM [facility] Alkaline Phosphatase 69 40 - 150 U/L 06/06/2024 4:46 PM [facility] ALT 19 5 - 55 U/L 06/06/2024 4:46 PM [facility] AST 16 5 - 34 U/L 06/06/2024 4:46 PM [facility] Anion Gap 8 6 - 16 06/06/2024 4:46 PM [facility] BUN/Creatinine Ratio 15 7 - 23 06/06/2024 4:46 PM [facility] Osmolality Calculated 291 275 - 295 mOsm/kg 06/06/2024 4:46 PM [facility] Albumin/Globulin Ratio 1.6 1.1 - 2.3 06/06/2024 4:46 PM [facility] eGFR by CKD-EPI 87(L) >=90 mL/min/1.7 3 m2 06/06/2024 4:46 PM [facility] Blood BLOOD SPECIMEN / Unknown Venipuncture / Unknown 06/06/2024 3:33 PM [facility] 06/06/2024 4:20 PM [facility] us Susan Montez MD LAB - CHEMISTRY ORDERABLES Final Result [facility] [address] [place] [address], [facility] [phone] * HEPATITIS C AB SCREEN RFLX NAAT QUANT (04/23/2024 4:15 PM UI ARCHITECT) Pathologist [facility] Hepatitis C Antibody Non-react shayan Non-reac tive 04/23/2024 5:27 PM UI ARCHITECT [facility] Comment:Hepatitis C Antibody screen indicates no serologic evidence of past or current infection with Hepatitis C Virus. Patients with unexplained liver disease who are immunocompromised or suspected of having acute Hepatitis C infection may benefit from Nucleic Acid Test (SAVANNA) for Hepatitis C Viral RNA to confirm Hepatitis C status. Blood BLOOD SPECIMEN / Unknown Lab Venipuncture / Unknown 04/23/2024 4:15 PM UI ARCHITECT 04/23/2024 4:33 PM [facility] - CHEMISTRY ORDERABLES F inal Result Performing Organization Address [facility] Co de Phone Number [address] [address], [place] [phone] * HIV-1 HIV-2 ANTIBODY + HIV P24 AG PANEL (New on 10/06) (04/23/2024 4:15 PM UI ARCHITECT) [facility] HIV Antigen/Antibod y 1 & 2 Non-reacti ve Non-react shayan 04/23/2024 5:27 PM UI ARCHITECT [facility] Comment:No Laboratory eviden ce of HIV infection. Blood BLOOD SPECIMEN / Unknown Lab Venipuncture / Unknown 04/23/2024 4:15 PM UI ARCHITECT 04/23/2024 4:33 PM UI ARCHITECT [facility] LAB - CHEMISTRY ORDERABLES F inal Result Performing Organization Address City/[facility]/ZIP Co de Phone Number [address] [address], [place] [phone] * (ABNORMAL) LIPID PROFILE (04/23/2024 4:15 PM UI ARCHITECT) [facility] Cholesterol Total 265(H) <200 mg/dL 04/23/2024 5:18 PM UI ARCHITECT [facility] HDL 41 >40 mg/dL 04/23/2024 5:18 PM UI ARCHITECT [facility] Comment: ATP III Classification of HDL Cholesterol: <40 mg/dL: Considered a major risk factor. >60 mg/dL: Considered a negative risk factor. LDL Calculated 181(H) <100 mg/dL 04/23/2024 5:18 PM [facility] Comment: ATP III Classification of LDL Cholesterol: <100 mg/dL: Optimal 100 - 129 mg/dL: Near Optimal/Above Optimal 130 - 159 mg/dL: Borderline High 160 - 189 mg/dL: High >190 mg/dL: Very High Triglycerides 214(H) <150 mg/dL 04/23/2024 5:18 PM [facility] Comment: ATP III Classification of Triglycerides: <150 mg/dL: Normal 150 - 199 mg/dL: Borderline High 200 - 400 mg/dL: High >500 mg/dL: Very High Blood BLOOD SPECIMEN / Unknown Lab Venipuncture / Unknown 04/23/2024 4:15 PM UI ARCHITECT 04/23/2024 4:47 PM UI ARCHITECT Genesis Thurman DO LAB - CHEMISTRY ORDERABLES F inal Result [facility] [address] [place] [address], [facility] [phone] from Last 3 Months or Most Recently Relevant to Health Maintenance Insurance [facility] Advance Directives * Full Code (Latest Code Status on File) Date Activated Date Inactivated Comments 01/20/2024 7:29 PM 01/23/2024 3:13 PM Care Teams Home Visitor Relationship Specialty Start Date End Date Janet Romero DO [address] [facility] [place] [address] PCP - General Internal Medicine 04/23/24
--- OUTSIDE RECORDS SUMMARY | 2024-11-19 17:21 | XMS_ITS | Clinical Summary ---
Author Organization [facility] Address [address] [place] [address] Phone Care Team Providers Care Sap Basis Architect Name Role Phone Unavailable Primary Care Provider [...]
--- OUTSIDE RECORDS SUMMARY | 2024-11-19 17:21 | XMS_ITS | Encounter Summary ---
Author Organization [facility] Address [address] [place] [address] Care Team Providers Care Social Media Intern Name Role Phone Janet Romero DO Primary Care Provider Reason for Visit * Reason Onset Date Comments Swelling Ankle 11/19/2024 Encounter Details Date Type Department Care Team (Late st Contact Info) Description 11/19/2024 Telephone [facility] - Internal Med [address] [facility] [place] [address] Janet Romero DO [address] [facility] [place] [address] Swelling Ankle Social History Tobacco Use Types [...] Recorded Patient Health Questionnaire-2 Score 0 10/24/2024 [facility] of Occupat ional Health - Occupational Stress [...] place to sleep or slept in a care home (including now)? No 01/21/2024 Sex and Gender [...] PCP. He will continue using Dr. Pedroza [place] as his PCP. * Telephone Encounter - Kennedi Woodward RN - 11/19/2024 10:36 AM CDT Gm, DIRECTOR OF REHABILITATION AND WELLNESS with Dr Baltazar Carranza, [facility]. Pt has been seeing Dr Carranza [...] as well. Gm with Dr Carranza's office [phone] [facility], Internal Med Per [employer] message: Janet Romero DO to Natanael Shaver [place] 10/31/24 9:13 AM Hi Natanael, We have been trying to reach you by phone regarding your blood thinner. You do not need to take theblood thinner (apixiban) any longer. This is confirmed after discussion with your saddle cutter Dr. Montez and your hydrochloric area supervisor Dr. Rice. Please stop taking the apixiban today. Please give us a call or reply to this message if you have any questions or concerns. Janet Romeor DO Last read by Natanael Shaver at 10:09AM on 11/19/2024. documented in this encounter Plan of Treatment Upcoming Encounters Date Type Department Care Team (Late st Contact Info) Description 12/05/2024 12:20 PM CDT Appointment [facility] [address] [place] [address] Susan Montez MD [address] [place] [phone] 05/01/2025 3:30 PM TH[facility]OOMC[facility] Office Visit [facility] - Internal Med [address] [place] [phone] documented as of this encounter Goals Goal Patient Goal Type Associated Problems Recent Progress Patient-Stated? Author Medication Management General On track( 024 12:38 PM THRES[facility] BROOMCORN) No Dominguez Cortez, RN Note: Expected end date: Interventions: Take all medications as prescribed Let your doctor know right away about any changes in your medications Make sure to request a refill of your medication at least one week prior to your last dose documented as of this encounter Visit Diagnoses Not on filedocumented in this encounter Care Teams Social Media Intern Relationship Specialty Start Date End Date Janet Romero DO [address] [facility] [place] [address] PCP - General Internal Medicine 04/23/24 documented as of this encounter
[2024-11-19] MEDS: HEPARIN SOD/D5W 100 UNITS/ML 25,000 UNITS/250 ML BAG 15 UNITS IV CONT (18:46)
[2024-11-19 18:56] LABS: Troponin I < 0.012 ng/mL (0.000-0.034)
--- NOTE | 2024-11-19 19:39 | PC.NURSE ---
Report received from KAILEY Hedrick. Assumed care of patient at this time.
[2024-11-19 19:55] LABS: NT Pro B Type Natriuretic Pept 40 pg/mL (19.9-100)
--- NOTE | 2024-11-19 19:58 | PC.NURSE ---
Report called to KAILEY Avila at [facility] at 194. Patient waiting for EMS to transport patient to [facility] ER.
[2024-11-20 00:02] VITALS: PULSE 88; RESP 19; O2SAT 95
[2024-11-20 00:15] VITALS: PULSE 88; RESP 19; O2SAT 95
[2024-11-20 01:12] VITALS: BP 119/51; PULSE 88; RESP 17; TEMP 36.6; O2SAT 97
[2024-11-20 01:21] LABS: Hematocrit 46.0 % (42.0-52.0); Hemoglobin 15.6 g/dL (14.0-18.0); Immature Granulocyte Percent A 0.4 % (0-0.5); Lymphocytes Absolute Auto 0.53 K/mm3 (0.9-3.2); Mean Corpuscular HGB Conc 33.9 g/dl (32-36); Mean Corpuscular Hemoglobin 31.2 pg (26-34); Mean Corpuscular Volume 92.0 fl (80-100); Nucleated Red Blood Cells Absolute Auto 0.000 K/mm3 (0.0-0.012); Nucleated Red Blood Cells Perc 0.0 % (0.0-0.2); Platelet Count Result 229 k/mm3 (150-375); Red Blood Count 5.00 M/mm3 (4.6-6.20); White Blood Count 10.2 K/mm3 (4.5-10.0)
[2024-11-20 01:24] LABS: INR 1.4; Prothrombin Time 16.9 Seconds (11.1-14.7)
[2024-11-20 01:27] LABS: Partial Thromboplastin Time 157.6 Seconds (22.3-36.8)
== END 2024-11-20 01:15 | disposition short-term general hospital (02) ==
PROVIDERS: Registered Nurse; Emergency Provider Physician Assistant; PCP Internal Medicine
DX: I26.94 Multiple subsegmental thrombotic pulmonary emboli 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 (principal); I82.431 Acute embolism and thrombosis of right popliteal vein; Z87.891 Personal history of nicotine dependence
CPT/HCPCS: 36415; 71275; 80053; 83735; 83880; 84484; 85025; 85380; 85610; 85730; 93971; 94640; 96365; 96366; 96375; 99291; J1100; J1200; J1644; J7030; Q9967

== ENCOUNTER 2024-12-04 09:51 | Outpatient (CLI) | payer OTHER, SELFPAY ==
--- NOTE | ~2024-12-04 | XR_ITS ---
MODIFIED ESOPHAGRAM HISTORY: Dysphagia. TECHNIQUE: Modified barium esophagram was performed on 12/04/2024. I administered fluoroscopy and perf ormed the exam with speech pathologist. Patient was seated for lateral fluoroscopic imaging for waldo stion of thin liquids, pudding, solids and quantified amounts, followed by thin liquids in uncontroll ed amounts. This was recorded on tape. A single fluoroscopic spot image was also recorded. The DAP fo r this procedure was 0.753 Gycm2. The amount of fluoroscopy time used during this procedure was 0.7 m inutes. FINDINGS: Oral stage: Adequate function. Pharyngeal stage: Single episode of flash laryngeal penetration with thin liquids. No aspiration.. Cervical/esophageal stage: Adequate function. IMPRESSION: Single episode of transient/flash laryngeal penetration without aspiration. Please corre late with speech pathologist findings and specific feeding recommendations. Reviewed, dictated and finalized at location A. IMPRESSION: Single episode of transient/flash laryngeal penetration without asp iration. Please correlate with speech pathologist findings and specific feedin g recommendations.
--- OUTSIDE RECORDS SUMMARY | 2024-12-04 10:02 | XMS_ITS | Clinical Summary ---
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 This disclosure is being madepursuant to the Care Everywhere program and may not contain all information available regarding this patient. Last updated 18.[facility] [employer] Allergies No known active allergies Medications * Be aware that medications may not be up to date on this document. Alwaysverify current medications with the patient. ezetimibe (Zetia) 10 MG tabletIndications: Hyperlipidemia, unspecified hyperlipidemia type Take 1 (one) tablet by mouth once daily 30 tablet 11 10/25/19 026 Active Additional Information Patient not taking.Reported on 11/26/2024 apixaban (Eliquis) 5 MG tablet Take 2 (two) tablets by mouth 2 times daily for 7 days, THEN 1 (one) tablet 2 times daily. 11/23/19 25 026 Active Active Problems Problem Noted Date Diagnosed Date Other acute pulmonary emboli sm, unspecified whether acute cor pulmonale present 11/20/2024 Assessment & Plan (11/20/2024 10:49 AM CDT): -Stopped Eliquis X 2 weeks ago at the direction of his providers Plan: -Continue heparin gtt for now -Appreciate PERT team recs, no surgical intervention at this time -Await LE Duplex -TTE pending -Hematology consulted to see if we need to change to a new DOAC vs continue Eliquis on d/c Assessment & Plan (11/20/2024 5:06 AM CDT): Continue heparin drip As he was recently taken off of Eliquis, would consult Hematology as well as pulmonology TTE ordered Lower extremity duplex Acute deep vein thrombosis ( DVT) of proximal vein of right lower extremity 11/20/2024 Assessment & Plan (11/20/2024 10:49 AM CDT): -Stopped Eliquis X 2 weeks ago at the direction of his providers Plan: -Continue heparin gtt for now -Appreciate PERT team recs, no surgical intervention at this time -Await LE Duplex -TTE pending -Hematology consulted to see if we need to change to a new DOAC vs continue Eliquis on d/c Assessment & Plan (11/20/2024 5:06 AM CDT): Continue heparin drip As he was recently taken off of Eliquis, would consult Hematology as well as pulmonology TTE ordered Lower extremity duplex Deep vein thrombosis (DVT) of proximal lower ext remity 01/23/2024 Elevated troponin 01/21/2024 Chest pain 01/21/2024 Leukocytosis 01/21/2024 Acute saddle pulmonary embol ism, unspecified whether acute cor pulmonale present 01/20/2024 GERD (gastroesophageal reflux disease) Assessment & Plan (11/20/2024 10:49 AM CDT): Pepcid Assessment & Plan (11/20/2024 5:06 AM CDT): Pepcid Encounters Date Type Department Care Team Description 11/26/2024 Transitional Care [facility] - Care Coordination [address] [place] [phone] Amy Danielle MSW Transitional Care 11/22/2024 Transitional Care [facility] - Care Coordination [address] [phone] Amy Danielle MSW Transitional Care 11/20/2024 1:28 AM CDT - 11/21/2024 6:42 PM CDT Hospital Encounter [facility] [address] [address] [place] [address] Brian Patino MD Bastin, Taylor J, MD Eshetu, Nebiyu A, MD Fritz, Adam, MD Hospitalist Discharge Disposition: Home or Self Care 11/19/2024 Telephone [facility] - Internal Med [address] [place] [address] Janet Romero, Swelling Ankle 10/31/2024 Orders Only [facility] PHYS INTERNAL MED [address] [place] [address] StackJanet crow, DO 10/24/2024 2:30 PM CDT Office Visit [facility] - Internal Med [facility] [place] [address] Janet Romero, Saddle embolus of pulmonary artery 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, unspecified chronicity (HCC) (Primary Dx); Leg DVT (deep venous thromboembolism), chronic, bilateral (HCC); Hyperlipidemia, unspecified hyperlipidemia type; Colon cancer screening 10/24/2024 Travel 10/22/2024 Orders Only [facility] PHYS INTERNAL MED [address] [place] [address] Janet Romero, DO 10/22/2024 Telephone [facility] - Internal Med [facility] [place] [address] Janet Romero, DO Med Question; Echocardiogram from Last 3 Months Family History Medical History Relation Name Comments CAD (Coronary Artery Disease) Brother Cancer - Prostate Brother CVA Mother CAD (Coronary Artery Disease) Sister Relation Name Status Comments Brother Mother Sister Social History Tobacco Use Types Packs/Day Years Used Date Smoking Tobacco: Former Cigarettes 1 44.9 S tarted: 01/1980 Passive Smoke Exposure: Never [...] Date Recorded Patient Health Questionnaire-2 Score 0 11/26/2024 [facility] - Occupational [...] place to sleep or slept in a group home (including now)? No 01/21/2024 Sex and Gender Information Value Date Recorded Sex Assigned at Male 01/21/2024 11:15 AM CDT Legal Sex Male 4:17 PM CDT Gender Identity Male 01/21/2024 11:15 AM CDT Sexual Orientation Straight 01/21/2024 11 :15 AM CDT Last Filed Vital Signs Vital Sign Reading Time Taken Comments Blood Pressure 132/71 11/21/2024 5:01 AM CDT Pulse 80 11/21/2024 5:01 AM CDT Temperature 37.1 C (98.7 F) 11/21/2024 5:01 AM CDT Respiratory Rate 16 11/21/2024 5:01 AM CDT Oxygen Saturation 99% 11/21/2024 5:01 AM CDT Inhaled Oxygen Concentration - - Weight 100.7 kg (222 lb 0.1 oz) 11/20/2024 1:29 AM CDT Height 177.8 cm (5' 10) 11/20/2024 1:29 AM CDT Body Mass Index 31.85 11/20/2024 1:29 AM CDT Plan of Treatment Upcoming Encounters Date Type Department Care Team (Late st Contact Info) Description 12/05/2024 12:20 PM CDT Appointment [facility] [address] [place] [address] Susan Montez MD [address] [place] [phone] 12/10/2024 3:30 PM CDT Office Visit [facility] - Pulmonology [address] [place] [phone] Jax Mcneal MD 05/01/2025 3:30 PM [employer] Office Visit [facility] - Internal Med [address] [place] [phone] Dorie Villasenor MD Health Maintenance Due Date Last Done Comments COLON MONITORING 1960 COLONOSCOPY - COLON CA SCREENING 1960 CT COLONOGRAPHY - COLON CA SCREENING 1960 FIT - COLON CA SCREENING 1960 FLEX SIG - COLON CA SCREENING 1960 ZOSTER VACCINE (1 of 2) 2010 INFLUENZA VACCINE (#1) 2025 DTAP/TDAP/TD VACCINES (1 - Tdap) 01/24/2025 Postponed from 1979 (Patient Refused) Respiratory Syncytial Virus (RSV) Vaccine Pt: or over 60 yrs (1 - Risk 60-74 years 1-dose series) 01/24/2025 Postponed fro m 2020 (Patient Refused) COVID-19 VACCINE (1 - season) 2025 Postponed from 01/22/2024 (Patient Refused) HEPATITIS B VACCINE (1 of 3 - Risk 3-dose series) 10/24/2025 Postponed from 2020 (Patient Refused) PNEUMOCOCCAL VACCINE 50+ (1 of 1 - PCV) 10/24/2025 Postponed from 2010 (Patient Refused) COLOGUARD (AGES 45-75) - COLON CA SCREENING 10/31/2027 10/30/2024, 10/30/2024 Colorectal Cancer Screening 10/31/2027 SCREENING FOR DIABETES 11/21/2027 , 11/20/2024, 06/06/2024, Additional history exists LIPID TESTING 04/23/2029 04/23/2024 HEPATITIS C SCREENING [...] Management General On track( 024 12:38 PM [employer]) Dominguez De, RN Note: Expected end date: Interventions: Take all medications as prescribed Let your doctor know right away about any changes in your medications Make sure to request a refill of your medication at least one week prior to your last dose Procedures Procedure Name Priority Date/Time Associated Diagnosis Comments ECHO COMPLETE W CONTRAST PENDING DISCHARGE 11/21/2024 4:49 PM CDT Acute deep vein thrombosis (DVT) of proximal vein of right lower extremity (HCC) PTT [facility] Timed 11/21/2024 4:25 AM CDT MAGNESIUM BLOOD Routine 11/20/2024 10:28 PM CDT BASIC METABOLIC PANEL (CALCIUM TOTAL) Routine 11/20/2024 10:28 PM CDT PT-INR [facility] Routine 11/20/2024 10:28 PM CDT CBC W AUTO DIFFERENTIAL Routine 11/20/2024 10:28 PM CDT PTT [facility] Timed 11/20/2024 10:28 PM CDT PTT [facility] Timed 11/20/2024 3:42 PM CDT CARDIAC EKG ORDER 11/20/2024 12: 39 PM CDT VAS BILATERAL VENOUS DUPLEX LE STAT 11/20/2024 10:31 AM CDT Acute deep vein thrombosis (DVT) of proximal vein of right lower extremity (HCC) PT EVAL AND TREAT Routine 11/20/2024 9:1 5 AM CDT OT EVAL AND TREAT Routine 11/20/2024 9:1 5 AM CDT PTT [facility] Timed 11/20/2024 9:01 AM CDT TROPONIN-I HIGH SENSITIVE REFLEX 1HOUR Timed 11/20/2024 3:00 AM CDT EKG 12-LEAD Routine 11/20/2024 1:56 AM CDT Other acute pulmonary embolism, unspecified whether acute cor pulmonale present (HCC) PTT [facility] STAT 11/20/2024 1:47 AM CDT PT-INR [facility] STAT 11/20/2024 1:47 AM CDT B-TYPE NATRIURETIC PEPTIDE STAT 11/20/2024 1:47 AM CDT TROPONIN-I HIGH SENSITIVE BASELINE + 1HR STAT 11/20/2024 1:47 AM CDT COMPREHENSIVE METABOLIC PANEL STAT 11/20/2024 1:47 AM CDT CBC W AUTO DIFFERENTIAL STAT 11/20/2024 1:47 AM CDT COLOGUARD TEST Routine 10/30/2024 8:00 AM CDT Colon cancer screening LIPID PROFILE Routine 04/23/2024 4:[address] [employer] Encounter to establish care Saddle embolus of pulmonary artery 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, unspecified chronicity Leg DVT (deep venous thromboembolism), chronic, bilateral HEPATITIS C AB SCREEN RFLX NAAT QUANT Routine 04/23/2024 4:15 [address] [employer] Encounter to establish care Saddle embolus of pulmonary artery 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, unspecified chronicity Leg DVT (deep venous thromboembolism), chronic, bilateral HIV-1 HIV-2 ANTIBODY + HIV P24 AG PANEL Routine 04/23/2024 4:15 PM [employer] Encounter to establish care Saddle embolus of pulmonary artery 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, unspecified chronicity Leg DVT (deep venous thromboembolism), chronic, bilateral from Last 3 Months or Most Recently Relevant to Health Maintenance Results * ECHO COMPLETE W CONTRAST (11/21/2024 4:49 PM CDT) Pathologist [facility] AV area index 1.712 cm /m [facility] PACS Dimensionless Index 0.909 unitless [facility] Myocardial strain charge 2 unitless [facility] IVSd 2D 0.925 cm [facility] I PACS LVIDd 5.214 cm [facility] I PACS LVIDs 3.234 cm [facility] I PACS LVOT diam 2.328 cm [facility] I PACS LVPWd 1.013 cm [facility] I PACS LV biplane EF 69.31 % [facility] LV A2C EF 70.122 % [facility] I PACS LV A4C EF 69.35 % [facility] I PACS LV EDV A2C 148.994 ml [facility]U JI PACS LV EDV A4C 150.238 ml [facility] PACS LV ESV A2C 44.516 ml [facility]U [facility]I PACS LV ESV A4C 46.049 ml [facility]I PACS LVOT pk grad 6.524 mmHg [facility] LVOT pk jim 127.706 cm/s [facility] CV F U PACS LVOT VTI 26.62 cm [facility] I PACS RV-galaviz basal diam 4.373 cm [facility] RVIDd 3.886 cm [facility] I PACS RVOT pk jim 76.517 cm/s [facility] CV F U PACS RVOT VTI 19.222 cm [facility] I PACS LA size 5.138 cm [facility] I PACS RA area 21.985 cm [facility] AV area pk jim 3.913 cm [facility] AV area cont VTI 3.87 cm [facility] AR DECEL TIME 2.162 s [facility] AV PHT 0.627 s [facility] I PACS AV pk jim regurg 363.87 cm/s [facility] AV pk grad 7.712 mmHg [facility]U JI PACS AV mn grad 4.386 mmHg [facility] FU JI PACS AV pk jim 138.853 cm/s [facility] I PACS AV VTI 29.269 cm [facility] I PACS MV A pk jim 66.865 cm/s [facility] CV F UJI PACS MV E pk jim 55.652 cm/s [facility] CV F UJI PACS MV E' lateral jim 5.944 cm/s SS M CV FUJI PACS MV mn grad 0.595 mmHg [facility] CV FU JI PACS MV VTI 19.401 cm [facility] I PACS MD VTI 62.25 cm [facility] I PACS PV pk jim 83.66 cm/s [facility] I PACS PV VTI 18.525 cm [facility] I PACS TAPSE 1.807 cm [facility] I PACS TR pk jim 265.458 cm/s [facility] I PACS Ascending aorta 3.52 cm [facility] PACS IVC Diam Expiration 2.062 cm [facility] PACS Anatomical Region Laterality Modality Ultrasound 11/21/2024 4:05 PM CDT Narrative 11/21/2024 5:51 PM CDT Summary * The left ventricle is normal in size, with normal systolic function and an estimated ejection fraction of 69 % by biplane method of disks. Left ventricular wall motion is grossly normal, however endocardial definition is limited despite contrast. * The left ventricular diastolic function is consistent with grade I diastolic dysfunction. * Right ventricle is borderline dilated with normal systolic function. * There is mild aortic valve regurgitation. * There is mild tricuspid valve regurgitation. * The pulmonary artery systolic pressure is normal, 32 mmHg. Patient Info Name: [facility] Age: 64 years : 1960 Gender: Male Ht: 70 in Wt: 222 lb BSA: 2.26 m2 HR: 62 bpm BP: 132 / 71 mmHg Heart Rhythm: Sinus Rhythm Exam Date: 11/21/2024 4:05 PM Exam Room: [facility] Patient Status: I/P Study Site: [facility] Primary Location: [facility] EStudy Info Technical Quality: Adequate Exam Type: ECHO COMPLETE W CONTRAST Indications I82.4Y1 - Acute deep vein thrombosis (DVT) of proximal vein of right lower extremity (HCC) Procedure(s) * An Ultrasound Enhancing Agent (UEA) was utilized to enhance endocardial definition and opacify the left ventricle. * A complete 2D, color Doppler, spectral Doppler and M-Mode transthoracic echocardiogram was performed with an Ultrasound Enhancing Agent (UEA). Contrast/Agitated Saline Contrast / Saline: Definity Amount: 1.00 ml Administered By: Helen Vasquez Reaction to Contrast: no Staff Referring Physician: José Miguel Wan Ordering Provider: José Miguel Wan Attending Physician: José Miguel Wan News Producer: Helen Vasquez Left Ventricle The left ventricle is normal in size. Left ventricular systolic function is normal with an estimated ejection fraction of 69 % by biplane method of disks. The left ventricular mass is normal. Left ventricular segmental wall motion is grossly normal, however endocardial definition is limited despite contrast. The left ventricular diastolic function is consistent with grade I diastolic dysfunction. Right Ventricle The right ventricle is borderline dilated. Right ventricular systolic function is normal. Left Atrium The left atrium is mildly dilated. Right Atrium The right atrium is mildly dilated. Atrial Septum Intact interatrial septum visualized by 2D and color Doppler imaging. Aortic Valve The aortic valve is trileaflet. There is no aortic valve stenosis. There is mild aortic valve regurgitation. Pulmonic Valve The pulmonic valve is grossly normal. There is no pulmonic valve stenosis. There is trace pulmonic regurgitation. Mitral Valve The mitral valve is grossly normal. There is no mitral valve stenosis. There is no significant mitral valve regurgitation. Tricuspid Valve The tricuspid valve is grossly normal. There is mild tricuspid valve regurgitation. The pulmonary artery systolic pressure is normal, 32 mmHg. Inferior Vena Cava The inferior vena cava is normal in size (< 2.1 cm). There is > 50% collapse of the IVC upon inspiration with an estimated right atrial pressure of 3 mmHg. Pericardium/Pleural There is a trivial pericardial effusion. Aorta The aortic root at the sinus of Valsalva is normal in size. The ascending aorta is normal in size. Measurements Left Ventricular Outflow Tract Name Value Normal LVOT 2D LVOT Diameter 2.3 cm LVOT Area 4.3 cm2 LVOT Doppler LVOT Peak Velocity 1.3 m/s LVOT Peak Gradient 7 mmHg LVOT Mean Velocity 89.67 cm/s LVOT Mean Gradient 4 mmHg LVOT VTI 26.6 cm LVOT VTI/AV VTI Ratio 0.9 LVOT Stroke Volume 113 ml LVOT Stroke Volume Index 50 ml/m2 35-58 LVOT CO 7.0 l/min LVOT CI 3.1 l/min/m2 Pulmonic Valve Name Value Normal RVOT Doppler RVOT Peak Velocity 0.8 m/s RVOT Peak Gradient 2 mmHg RVOT Mean Gradient 1 mmHg PV Doppler PV Peak Velocity 0.8 m/s PV Peak Gradient 3 mmHg PV Mean Gradient 2 mmHg PV Regurgitation Doppler MD End Diastolic Gradient 10 mmHg Mitral Valve Name Value Normal MV Doppler MV Peak Gradient 2 mmHg MV Mean Gradient 1 mmHg MV DI (VTI) 0.73 MV PHT 59 ms MV Area (PHT) 3.75 cm2 4.00-5.00 MV Area (Cont Eq VTI) 5.83 cm2 MV Diastolic Function MV E Peak Velocity 0.6 m/sec MV A Peak Velocity 0.7 m/sec MV E/A 0.8 MV Decel Time (PW) 212 ms MV A Wave Duration 157 ms MV Annular TDI MV Septal e' Velocity 5 cm/s >=8 MV E/e' (Septal) 11 <=8 MV Lateral e' Velocity 6 cm/s >=10 MV E/e' (Lateral) 9 <=8 MV e' Average 6 cm/s MV E/e' (Average) 10 Tricuspid Valve Name Value Normal TV Doppler TV PHT 50 ms TV Area (PHT) 4.37 cm2 TV Regurgitation Doppler TR Peak Velocity 2.7 m/s TR Peak Gradient 28 mmHg Estimated PAP/RSVP RA Pressure 3 mmHg <=5 PA Systolic Pressure 32 mmHg <35 RV Systolic Pressure 31 mmHg <36 TV Diastolic Function TV E Peak Velocity 0.4 m/sec TV A Peak Velocity 0.3 m/sec TV E/A 1.4 0.8-2.0 TV Decel Time 174 ms >=120 TV Annular TDI TV Lateral Aline s' Velocity 9 cm/s 10-19 Pulmonary Vessels Name Value Normal Pulmonary Artery Doppler PA End Diastolic Pressure for MD 13 mmHg Aorta Name Value Normal Ascending Aorta Asc Ao Diameter 3.5 cm 2.2-3.8 Asc Ao Diameter Index 1.6 cm/m2 1.1-1.9 Venous Name Value Normal IVC/SVC IVC Diameter 2.1 cm <=2.1 Aortic Valve Name Value Normal AV 2D/MM AV Cusp Sep (MM) 2.3 cm AV Doppler AV Peak Velocity 1.39 m/s AV Peak Gradient 8 mmHg AV Mean Gradient 4 mmHg AV VTI 29 cm AV Area (Cont Eq VTI) 3.87 cm2 >=2.00 AV Area (Cont Eq Jim) 3.91 cm2 AV DI (VTI) 0.91 AV DI (Jim) 0.92 AV Regurgitation 2D LVOT Area 4.25 cm2 AV Regurgitation Doppler AR Decel Time 2,162 ms AR PHT 627 ms Ventricles Name Value Normal LV Dimensions 2D/MM IVS Diastolic Thickness (2D) 0.9 cm 0.6-1.0 LVID Diastole (2D) 5.2 cm 4.2-5.8 LVPW Diastolic Thickness (2D) 1.0 cm 0.6-1.0 IVS Systolic Thickness (2D) 1.2 cm LVID Systole (2D) 3.2 cm 2.5-4.0 LVPW Systolic Thickness (2D) 1.3 cm LV Mass (2D Cubed) 144 g 88-224 LV Mass Index (2D Cubed) 64 g/m2 49-115 Relative Wall Thickness (2D) 0.39 <=0.42 LV Fractional Shortening/Ejection Fraction 2D/MM LV Fractional Shortening (2D) 38 % 25-43 LV EF (2D Teicholz) 68 % 52-72 LV Diastolic Volume (4C MOD) 150 ml LV EF (4C MOD) 69 % LV Diastolic Volume (2C MOD) 149 ml LV EF (2C MOD) 70 % LV Diastolic Volume (BP MOD) 150 ml 62-150 LV Diastolic Volume Index (BP MOD) 66 ml/m2 34-74 LV Systolic Volume (BP MOD) 46 ml 21-61 LV Systolic Volume Index (BP MOD) 20 ml/m2 11-31 LV EF (BP MOD) 69 % 52-72 LV Diastolic Length (4C) 9.0 cm LV Systolic Length (4C) 7.2 cm LV Stroke Volume (4C MOD) 104 ml RV Dimensions 2D/MM RVID Diastole (2D) 3.9 cm 2.5-3.5 RVID Systole (2D) 3.2 cm RV Basal Diastolic Dimension 4.4 cm 2.5-4.1 RV Diastolic Length (4C) 6.9 cm 5.9-8.3 TAPSE 1.8 cm >=1.7 Atria Name Value Normal LA Dimensions LA Dimension (2D) 5.1 cm 3.0-4.1 LA Dimen Index (2D) 2.3 cm/m2 RA Dimensions RA Area (4C) 22 cm2 <=18 RA Area (4C) Index 10 cm2/m2 Report Signatures Finalized by Mendoza Chavez on 11/21/2024 05:51 PM Procedure Note Mendoza Chavez MD - 11/21/2024 Summary * The left ventricle is normal in size, with normal systolic functionand an estimated ejection fraction of 69 % by biplane method of disks. Left ventricular wall motion is grossly normal, however endocardial definitionis limited despite contrast. * The left ventricular diastolic function is consistent with grade I diastolic dysfunction. * Right ventricle is borderline dilated with normal systolic function. * There is mild aortic valve regurgitation. * There is mild tricuspid valve regurgitation. * The pulmonary artery systolic pressure is normal, 32 mmHg. Patient Info Name: Natanael Forde Age: 64 years : 1960 Gender: Male Ht: 70 in Wt: 222 lb BSA: 2.26 m2 HR: 62 bpm BP: 132 / 71 mmHg Heart Rhythm: Sinus Rhythm Exam Date: 11/21/2024 4:05 PM Exam Room: [facility] Patient Status: I/P Study Site: [facility] Primary Location: [facility] EStudy Info Technical Quality: Adequate Exam Type: ECHO COMPLETE W CONTRAST Indications I82.4Y1 - Acute deep vein thrombosis (DVT) of proximal vein of rightlower extremity (HCC) Procedure(s) * An Ultrasound Enhancing Agent (UEA) was utilized to enhanceendocardial definition and opacify the left ventricle. * A complete 2D, color Doppler, spectral Doppler and M-Modetransthoracic echocardiogram was performed with an Ultrasound Enhancing Agent (UEA). Contrast/Agitated Saline Contrast / Saline: Definity Amount: 1.00 ml Administered By: Helen Vasquez Reaction to Contrast: no Staff Referring Physician: José Miguel Wan Ordering Provider: José Miguel Wan Attending Physician: José Miguel Wan News Producer: Helen Vasquez Left Ventricle The left ventricle is normal in size. Left ventricular systolic functionis normal with an estimated ejection fraction of 69 % by biplane method ofdisks. The left ventricular mass is normal. Left ventricular segmental wallmotion is grossly normal, however endocardial definition is limited despitecontrast. The left ventricular diastolic function is consistent with grade Idiastolic dysfunction. Right Ventricle The right ventricle is borderline dilated. Right ventricular systolic function is normal. Left Atrium The left atrium is mildly dilated. Right Atrium The right atrium is mildly dilated. Atrial Septum Intact interatrial septum visualized by 2D and color Doppler imaging. Aortic Valve The aortic valve is trileaflet. There is no aortic valve stenosis. Thereis mild aortic valve regurgitation. Pulmonic Valve The pulmonic valve is grossly normal. There is no pulmonic valvestenosis. There is trace pulmonic regurgitation. Mitral Valve The mitral valve is grossly normal. There is no mitral valve stenosis.There is no significant mitral valve regurgitation. Tricuspid Valve The tricuspid valve is grossly normal. There is mild tricuspid valve regurgitation. The pulmonary artery systolic pressure is normal, 32mmHg. Inferior Vena Cava The inferior vena cava is normal in size (< 2.1 cm). There is > 50%collapse of the IVC upon inspiration with an estimated right atrial pressure of 3mmHg. Pericardium/Pleural There is a trivial pericardial effusion. Aorta The aortic root at the sinus of Valsalva is normal in size. Theascending aorta is normal in size. Measurements Left Ventricular Outflow Tract Name Value Normal LVOT 2D LVOT Diameter 2.3 cm LVOT Area 4.3 cm2 LVOT Doppler LVOT Peak Velocity 1.3 m/s LVOT Peak Gradient 7 mmHg LVOT Mean Velocity 89.67 cm/s LVOT Mean Gradient 4 mmHg LVOT VTI 26.6 cm LVOT VTI/AV VTI Ratio 0.9 LVOT Stroke Volume 113 ml LVOT Stroke Volume Index 50 ml/m2 35-58 LVOT CO 7.0 l/min LVOT CI 3.1 l/min/m2 Pulmonic Valve Name Value Normal RVOT Doppler RVOT Peak Velocity 0.8 m/s RVOT Peak Gradient 2 mmHg RVOT Mean Gradient 1 mmHg PV Doppler PV Peak Velocity 0.8 m/s PV Peak Gradient 3 mmHg PV Mean Gradient 2 mmHg PV Regurgitation Doppler MD End Diastolic Gradient 10 mmHg Mitral Valve Name Value Normal MV Doppler MV Peak Gradient 2 mmHg MV Mean Gradient 1 mmHg MV DI (VTI) 0.73 MV PHT 59 ms MV Area (PHT) 3.75 cm2 4.00-5.00 MV Area (Cont Eq VTI) 5.83 cm2 MV Diastolic Function MV E Peak Velocity 0.6 m/sec MV A Peak Velocity 0.7 m/sec MV E/A 0.8 MV Decel Time (PW) 212 ms MV A Wave Duration 157 ms MV Annular TDI MV Septal e' Velocity 5 cm/s >=8 MV E/e' (Septal) 11 <=8 MV Lateral e' Velocity 6 cm/s >=10 MV E/e' (Lateral) 9 <=8 MV e' Average 6 cm/s MV E/e' (Average) 10 Tricuspid Valve Name Value Normal TV Doppler TV PHT 50 ms TV Area (PHT) 4.37 cm2 TV Regurgitation Doppler TR Peak Velocity 2.7 m/s TR Peak Gradient 28 mmHg Estimated PAP/RSVP RA Pressure 3 mmHg <=5 PA Systolic Pressure 32 mmHg <35 RV Systolic Pressure 31 mmHg <36 TV Diastolic Function TV E Peak Velocity 0.4 m/sec TV A Peak Velocity 0.3 m/sec TV E/A 1.4 0.8-2.0 TV Decel Time 174 ms >=120 TV Annular TDI TV Lateral Aline s' Velocity 9 cm/s 10-19 Pulmonary Vessels Name Value Normal Pulmonary Artery Doppler PA End Diastolic Pressure for MD 13 mmHg Aorta Name Value Normal Ascending Aorta Asc Ao Diameter 3.5 cm 2.2-3.8 Asc Ao Diameter Index 1.6 cm/m2 1.1-1.9 Venous Name Value Normal IVC/SVC IVC Diameter 2.1 cm <=2.1 Aortic Valve Name Value Normal AV 2D/MM AV Cusp Sep (MM) 2.3 cm AV Doppler AV Peak Velocity 1.39 m/s AV Peak Gradient 8 mmHg AV Mean Gradient 4 mmHg AV VTI 29 cm AV Area (Cont Eq VTI) 3.87 cm2 >=2.00 AV Area (Cont Eq Jim) 3.91 cm2 AV DI (VTI) 0.91 AV DI (Jim) 0.92 AV Regurgitation 2D LVOT Area 4.25 cm2 AV Regurgitation Doppler AR Decel Time 2,162 ms AR PHT 627 ms Ventricles Name Value Normal LV Dimensions 2D/MM IVS Diastolic Thickness (2D) 0.9 cm 0.6-1.0 LVID Diastole (2D) 5.2 cm 4.2-5.8 LVPW Diastolic Thickness (2D) 1.0 cm 0.6-1.0 IVS Systolic Thickness (2D) 1.2 cm LVID Systole (2D) 3.2 cm 2.5-4.0 LVPW Systolic Thickness (2D) 1.3 cm LV Mass (2D Cubed) 144 g 88-224 LV Mass Index (2D Cubed) 64 g/m2 49-115 Relative Wall Thickness (2D) 0.39 <=0.42 LV Fractional Shortening/Ejection Fraction 2D/MM LV Fractional Shortening (2D) 38 % 25-43 LV EF (2D Teicholz) 68 % 52-72 LV Diastolic Volume (4C MOD) 150 ml LV EF (4C MOD) 69 % LV Diastolic Volume (2C MOD) 149 ml LV EF (2C MOD) 70 % LV Diastolic Volume (BP MOD) 150 ml 62-150 LV Diastolic Volume Index (BP MOD) 66 ml/m2 34-74 LV Systolic Volume (BP MOD) 46 ml 21-61 LV Systolic Volume Index (BP MOD) 20 ml/m2 11-31 LV EF (BP MOD) 69 % 52-72 LV Diastolic Length (4C) 9.0 cm LV Systolic Length (4C) 7.2 cm LV Stroke Volume (4C MOD) 104 ml RV Dimensions 2D/MM RVID Diastole (2D) 3.9 cm 2.5-3.5 RVID Systole (2D) 3.2 cm RV Basal Diastolic Dimension 4.4 cm 2.5-4.1 RV Diastolic Length (4C) 6.9 cm 5.9-8.3 TAPSE 1.8 cm >=1.7 Atria Name Value Normal LA Dimensions LA Dimension (2D) 5.1 cm 3.0-4.1 LA Dimen Index (2D) 2.3 cm/m2 RA Dimensions RA Area (4C) 22 cm2 <=18 RA Area (4C) Index 10 cm2/m2 Report Signatures Finalized by Mendoza Chavez on 11/21/2024 05:51 PM José Miguel Wan MD E[facility] Final Result * (ABNORMAL) PTT [facility] (11/21/2024 4:25 AM CDT) Only the most recent of5 resultswithin the time period is included. APTT 101.2(HH) 23.0 - 38.4 Seconds 11/21/2024 5:19 AM CDT [facility] Comment:Suggested therapeuti c range for full dose I.V. unfractionated heparin therapy for venous thromboembolism is 71 to 109 seconds. Blood BLOOD SPECIMEN / Unknown Venipuncture / Unknown 11/21/2024 4:25 AM CDT 11/21/2024 4:50 AM CDT Elva Marcelino MD LAB - COAGULATION ORDERABLES Final Result [facility] [address] [place] [address], [place] [phone] * (ABNORMAL) PT-INR [facility] (11/20/2024 10:28 PM CDT) Only the most recent of2 resultswithin the time period is included. PT 15.8(H) 12.1 - 14.8 Seconds 11/20/2024 11:26 PM [facility] INR 1.3 See Comment 11/20/2024 11:26 PM [facility] Comment:The suggested therap eutic range for standard coumadin (warfarin) therapy is an INR of 2.0-3.0. For high-risk patients (Mechanical Mitral Valve Prosthesis, etc.), the suggested prophylactic therapeutic range is an INR of 2.5-3.5. Blood BLOOD SPECIMEN / Unknown Venipuncture / Unknown 11/20/2024 10:28 PM CDT 11/20/2024 10:46 PM CDT us Brian Patino MD LAB - COAGULATION ORDERABLES Final Result [facility] [address] [place] [address], [facility] [phone] * (ABNORMAL) CBC W AUTO DIFFERENTIAL (11/20/2024 10:28 PM CDT) Only the most recent of2 resultswithin the time period is included. Pathologist [facility] WBC 20.5(H) 4.0 - 10.7 x10E9/L 11/20/2024 10:52 PM [facility] RBC Count 4.82 4.30 - 5.80 x10E12/L 11/20/2024 10:52 PM [facility] Hemoglobin 15.1 13.3 - 17.5 g/dL 11/20/2024 10:52 PM [facility] Hematocrit 43.1 38.7 - 51.1 % 11/20/2024 10:52 PM [facility] MCV 89.4 80.0 - 98.0 fL 11/20/2024 10:52 PM [facility] MCH 31.3 26.7 - 33.6 pg 11/20/2024 10:52 PM [facility] MCHC 35.0 31.7 - 36.3 g/dL 11/20/2024 10:52 PM [facility] RDW-CV 13.0 11.3 - 14.8 % 11/20/2024 10:52 PM [facility] Platelet Count 246 150 - 420 x10E9/L 11/20/2024 10:52 PM [facility] MPV 9.9 7.8 - 11.4 fL 11/20/2024 10:52 PM [facility] Neutrophil % 80.9(H) 41.0 - 74.0 % 11/20/2024 10:52 PM [facility] Lymphocyte % 11.6(L) 17.0 - 47.0 % 11/20/2024 10:52 PM [facility] Monocyte % 6.8 3.0 - 11.0 % 11/20/2024 10:52 PM [facility] Eosinophil % 0.0 0.0 - 7.0 % 11/20/2024 10:52 PM [facility] Basophil % 0.1 0.0 - 1.6 % 11/20/2024 10:52 PM [facility] Immature Granulocytes % 0.6 0.0 - 1.0 % 11/20/2024 10:52 PM [facility] Neutrophil Absolute 16.59(H) 1.60 - 7.50 x10E9/L 11/20/2024 10:52 PM [facility] Lymphocyte Absolute 2.37 1.00 - 4.40 x10E9/L 11/20/2024 10:52 PM [facility] Monocyte Absolute 1.39(H) 0.15 - 1.00 x10E9/L 11/20/2024 10:52 PM [facility] Eosinophil Absolute 0.01 0.00 - 0.60 x10E9/L 11/20/2024 10:52 PM [facility] Basophil Absolute 0.03 0.00 - 0.13 x10E9/L 11/20/2024 10:52 PM [facility] Blood BLOOD SPECIMEN / Unknown Venipuncture / Unknown 11/20/2024 10:28 PM CDT 11/20/2024 10:46 PM CDT us Brian Patino MD LAB - HEMATOLOGY ORDERABLES F inal Result [facility] [address] [place] [address], [facility] [phone] * (ABNORMAL) BASIC METABOLIC PANEL (CALCIUM TOTAL) (11/20/2024 10:28 PM CDT) BUN 19 7 - 26 mg/dL 11/20/2024 11:25 PM [facility] Creatinine 0.98 0.71 - 1.16 mg/dL 11/20/2024 11:25 PM [facility] Sodium 140 136 - 145 mmol/L 11/20/2024 11:25 PM [facility] Potassium 3.8 3.5 - 4.5 mmol/L 11/20/2024 11:25 PM [facility] Chloride 108(H) 98 - 107 mmol/L 11/20/2024 11:25 PM [facility] CO2 24 22 - 29 mmol/L 11/20/2024 11:25 PM [facility] Glucose 108(H) 70 - 99 mg/dL 11/20/2024 11:25 PM [facility] Calcium 9.0 8.4 - 10.2 mg/dL 11/20/2024 11:25 PM [facility] Anion Gap 8 6 - 16 11/20/2024 11:25 PM [facility] BUN/Creatinine Ratio 19 7 - 23 11/20/2024 11:25 PM [facility] Osmolality Calculated 293 275 - 295 mOsm/kg 11/20/2024 11:25 PM [facility] eGFR by CKD-EPI 86(L) >=90 mL/min/1.7 3 m2 11/20/2024 11:25 PM [facility] Comment:Estimated Glomerular Filtration Rate (eGFR) calculated using the CKD-EPI Creatinine Equation (2020), per the National Kidney Foundation and [place] Society of Nephrology recommendations. Blood BLOOD SPECIMEN / Unknown Venipuncture / Unknown 11/20/2024 10:28 PM CDT 11/20/2024 10:46 PM CDT Elva Marcelino MD LAB - CHEMISTRY ORDERABLES Fi nal Result [address] [address], [facility] [phone] * MAGNESIUM BLOOD (11/20/2024 10:28 PM CDT) Magnesium 1.9 1.6 - 2.6 mg/dL 11/20/2024 11:25 PM CDT [facility] Blood BLOOD SPECIMEN / Unknown Venipuncture / Unknown 11/20/2024 10:28 PM CDT 11/20/2024 10:46 PM CDT Elva Marcelino MD LAB - CHEMISTRY ORDERABLES Fi nal Result Performing Organization Address [facility]/ZIP Co de Phone Number [address] [address], [facility] [phone] * CARDIAC EKG ORDER (11/20/2024 12:39 PM CDT) Narrative 11/20/2024 12:39 PM CDT Ordered by an unspecified provider. Scanned Document CARDIAC SERVICES ORDERABLES Fin al Result * VAS Bilateral Venous Duplex Le (11/20/2024 10:31 AM CDT) Anatomical Region Laterality Modality Lower Extremity Ultrasound 11/20/2024 9:58 AM CDT Narrative Procedure Note Manuel Lund MD - 11/21/2024 us Jeffrey Dyson MD VASCULAR LAB ORDERABLES Edited R esult - Final * TROPONIN-I HIGH SENSITIVE REFLEX 1HOUR (11/20/2024 3:00 AM CDT) Troponin I High Sensitive 5 <=35 ng/L 11/20/2024 4:08 AM CDT [facility] Delta Troponin I HS 0 <6 ng/L 11/20/2024 4:08 AM CDT [facility] Blood BLOOD SPECIMEN / Unknown Venipuncture / Unknown 11/20/2024 3:00 AM CDT 11/20/2024 3:12 AM CDT Brian Patino MD LAB - CHEMISTRY ORDERABLES Fi nal Result Performing Organization Address City/[facility]/ZIP Co de Phone Number [facility] [address] [place] [address], [facility] [phone] * EKG 12-Lead (11/20/2024 1:56 AM CDT) Ventricular Rate 79 BPM [facility] MUSE Atrial Rate 79 BPM [facility] MUSE P-R Interval 178 ms [facility]USE QRS Duration ms 92 ms [facility] MUSE Q-T Interval ms 384 ms [facility] MUSE QTC Calculation (Bezet) 440 ms [facility] MUSE Calculated R [employer] -22 degrees [facility] MUSE Calculated T [employer] -67 degrees [facility] MUSE Interpretation EKG NORMAL SINUS RHYTHM INFERIOR INFARCT , AGE UNDETERMINED ABNORMAL ECG WHEN COMPARED WITH ECG OF 20-JAN-2024 19:39, LEFT ANTERIOR FASCICULAR BLOCK IS NO LONGER PRESENT INFERIOR INFARCT IS NOW PRESENT NON-SPECIFIC CHANGE IN ST SEGMENT IN INFERIOR LEADS T WAVE INVERSION NOW EVIDENT IN INFERIOR LEADS Confirmed by FRANCISCO NOGUEIRA MD ([id number]) on 11/23/2024 6:30:36 PM [facility] 11/20/2024 1:56 AM CDT 11/23/2024 6:30 PM CDT us Brian Patino MD ECG ORDERABLES Edited Result - Final [facility] MUSE * TROPONIN-I HIGH SENSITIVE BASELINE + 1HR (11/20/2024 1:47 AM CDT) Troponin I High Sensitive 5 <=35 ng/L 11/20/2024 2:31 AM CDT [facility] Blood BLOOD SPECIMEN / Unknown Venipuncture / Unknown 11/20/2024 1:47 AM CDT 11/20/2024 1:55 AM CDT Brian Patino MD LAB - CHEMISTRY ORDERABLES Fi nal Result Performing Organization Address [facility]/ZIP Co de Phone Number [place] [id number] [place] [address], [facility] [phone] * B-TYPE NATRIURETIC PEPTIDE (11/20/2024 1:47 AM CDT) Pathologist [facility] BNP 11 <100 pg/mL 11/20/2024 2:30 AM CDT [facility] Comment: A decision threshold of 100 pg/mL has been demonstrated to provide the maximal combination of sensitivity, specificity and predictive value for the diagnosis of congestive heart failure (CHF). Virtually all patients with no evidence of CHF have BNP values less than 100 pg/mL. A BNP value greater than 100 pg/mL is consistent with the diagnosis of CHF in the appropriate clinical setting. In a study of 693 patients (male and female) with diagnosed CHF, the following values were determined based on the NYHA functional classification system: NYHA Functional Class Mean Valule (pg/mL) % >100 pg/mL I 320 58.1 II 432 73.0 III 656 79.0 IV 1635 98.3 Blood BLOOD SPECIMEN / Unknown Venipuncture / Unknown 11/20/2024 1:47 AM CDT 11/20/2024 1:55 AM CDT Brian Patino MD LAB - CHEMISTRY ORDERABLES Fi nal Result Performing Organization Address City/[facility]/ZIP Co de Phone Number [address] [address], [facility] [phone] * (ABNORMAL) COMPREHENSIVE METABOLIC PANEL (11/20/2024 1:47 AM CDT) Pathologist [facility] BUN 15 7 - 26 mg/dL 11/20/2024 2:28 AM CDT [facility] Creatinine 0.99 0.71 - 1.16 mg/dL 11/20/2024 2:28 AM CDT [facility] Sodium 138 136 - 145 mmol/L 11/20/2024 2:28 AM [facility] Potassium 4.0 3.5 - 4.5 mmol/L 11/20/2024 2:28 AM [facility] Chloride 112(H) 98 - 107 mmol/L 11/20/2024 2:28 AM [facility] CO2 21(L) 22 - 29 mmol/L 11/20/2024 2:28 AM [facility] Glucose 203(H) 70 - 99 mg/dL 11/20/2024 2:28 AM [facility] Calcium 9.2 8.4 - 10.2 mg/dL 11/20/2024 2:28 AM [facility] Protein Total 6.9 6.0 - 8.3 g/dL 11/20/2024 2:28 AM [facility] Albumin 4.1 3.4 - 5.0 g/dL 11/20/2024 2:28 AM [facility] Bilirubin Total 0.4 0.2 - 1.2 mg/dL 11/20/2024 2:28 AM [facility] Alkaline Phosphatase 73 40 - 150 U/L 11/20/2024 2:28 AM [facility] ALT 42 5 - 55 U/L 11/20/2024 2:28 AM [facility] AST 22 5 - 34 U/L 11/20/2024 2:28 AM [facility] Anion Gap 5(L) 6 - 16 11/20/2024 2:28 AM [facility] BUN/Creatinine Ratio 15 7 - 23 11/20/2024 2:28 AM [facility] Osmolality Calculated 293 275 - 295 mOsm/kg 11/20/2024 2:28 AM [facility] Albumin/Globulin Ratio 1.5 1.1 - 2.3 11/20/2024 2:28 AM [facility] eGFR by CKD-EPI 85(L) >=90 mL/min/1.7 3 m2 11/20/2024 2:28 AM [facility] Blood BLOOD SPECIMEN / Unknown Venipuncture / Unknown 11/20/2024 1:47 AM [facility][NOTE 3] 11/20/2024 1:55 AM [facility] - 11/20/2024 2:28 AM CDT Estimated Glomerular Filtration Rate (eGFR) calculated using the CKD-EPI Creatinine Equation (2020), per the National Kidney Foundation and [place] Society of Nephrology recommendations. us Brian Patino MD LAB - CHEMISTRY ORDERABLES Fi nal Result [facility] [address] [place] [address], [facility] [phone] * [id number] COLOGUARD TEST *Associate with Z12.11 OR Z12.12 Dx Codes* (10/30/2024 8:00 AM CDT) Cologuard Negative Negative [facility] Comment: The Cologuard (TM) test was [...] (Luz Jordan al, N Engl J Med 2014;370(14):7919-4507) The normal value (reference range) for this assay is negative. COLOGUARD RE-SCREENING RECOMMENDATION: Periodic colorectal cancer screening is an important part of preventive healthcare for asymptomatic individuals at average risk for colorectal cancer. Following a negative Cologuard result, the [place] Cancer Society and U.S. Multi-Society Task Force screening guidelines recommend a Cologuard re-screening interval of 3 years. References: [place] Cancer Society Guideline for Colorectal Cancer Screening: https://www.cancer.org/cancer/ghyjs-wjcgaf-uwahlf/kcowpxujh-igshrqdul-ucvospz/ acs-recommendations.html.; Declan BETHEA, Karolina ROE, Ousmane BECK, Colorectal Cancer Screening: Recommendations for Physicians and Patients from the U.S. Multi-Society Task Force on Colorectal Cancer Screening , Am J Gastroenterology 2017; 112:6427-1634. TEST DESCRIPTION: Composite algorithmic analysis of stool [...] screened with both Cologuard and colonoscopy. (Luz Mcdonald. et al, N Engl J Med 2014;370(14):2191-1168.) Cologuard may produce a false negative or false positive result (no colorectal cancer or precancerous polyp present at colonoscopy follow up). A negative Cologuard test result does not guarantee the absence of CRC or advanced adenoma (pre-cancer). The current Cologuard screening interval is every 3 years. ([place] Cancer Society and U.S. Multi-Society Task Force). Cologuard performance data in a 10,000 patient pivotal study using colonoscopy as the reference method can be accessed at the following location: www.SwingShot.com/results. Additional description of the Cologuard test process, warnings and precautions can be found at www.[employer]imiz[employer]StormMQrd.com. Stool STOOL SPECIMEN / Unknown 10/30/2024 8:00 AM CDT 10/31/2024 12:14 PM CDT us Adam Gandhi MD LAB - CHEMISTRY ORDERABLES F inal Result Performing Organization Address City/[facility]/ZIP Co de Phone Number [facility] [address] [place] [address] [facility] [address] [address] * HEPATITIS C AB SCREEN RFLX NAAT QUANT (04/23/2024 4:15 PM [facility] [employer] REPLACER) Pathologist [facility] Hepatitis C Antibody Non-react shayan Non-reac tive 04/23/2024 5:27 PM [facility] [employer] Comment:Hepatitis C Antibody screen indicates no serologic evidence of past or current infection with Hepatitis C Virus. Patients with unexplained liver disease who are immunocompromised or suspected of having acute Hepatitis C infection may benefit from Nucleic Acid Test (SAVANNA) for Hepatitis C Viral RNA to confirm Hepatitis C status. Blood BLOOD SPECIMEN / Unknown Lab Venipuncture / Unknown 04/23/2024 4:15 PM [facility] [employer] [facility] 04/23/2024 4:33 PM [facility] - CHEMISTRY ORDERABLES F inal Result Performing Organization Address [facility] Co de Phone Number [address] [address], [place] [phone] * HIV-1 HIV-2 ANTIBODY + HIV P24 AG PANEL (New on 10/06) (04/23/2024 4:15 PM [facility] [employer] REPLAC[facility]) [facility] HIV Antigen/Antibod y 1 & 2 Non-reacti ve Non-react shayan 04/23/2024 5:27 PM [facility] [employer] Comment:No Laboratory eviden ce of HIV infection. Blood BLOOD SPECIMEN / Unknown Lab Venipuncture / Unknown 04/23/2024 4:15 PM [facility] [employer] 04/23/2024 4:33 PM [facility] [employer] REPLAC[facility] COGEON DO LAB - CHEMISTRY ORDERABLES F inal Result Performing Organization Address City/[facility]/ZIP Co de Phone Number [address] [address], [place] [phone] * (ABNORMAL) LIPID PROFILE (04/23/2024 4:15 PM [facility] [employer]PLAC[facility]) Cholesterol Total 265(H) <200 mg/dL 04/23/2024 5:18 PM [facility] HDL 41 >40 mg/dL 04/23/2024 5:18 PM [facility] Comment: ATP III Classification of HDL Cholesterol: <40 mg/dL: Considered a major risk factor. >60 mg/dL: Considered a negative risk factor. LDL Calculated 181(H) <100 mg/dL 04/23/2024 5:18 PM [facility] Comment: ATP III Classification of LDL Cholesterol: <100 mg/dL: Optimal 100 - 129 mg/dL: Near Optimal/Above Optimal 130 - 159 mg/dL: Borderline High 160 - 189 mg/dL: High >190 mg/dL: Very High Triglycerides 214(H) <150 mg/dL 04/23/2024 5:18 PM [facility] Comment: ATP III Classification of Triglycerides: <150 mg/dL: Normal 150 - 199 mg/dL: Borderline High 200 - 400 mg/dL: High >500 mg/dL: Very High Blood BLOOD SPECIMEN / Unknown Lab Venipuncture / Unknown 04/23/2024 4:15 PM [facility] [employer] 04/23/2024 4:47 PM [facility] [employer]PL[employer] Genesis Thurman DO LAB - CHEMISTRY ORDERABLES F inal Result Performing Organization Address [facility]/State/[facility] Co de Phone Number [facility] [address] [place] [address], [facility] [phone] from Last 3 Months or Most Recently Relevant to Health Maintenance Insurance [facility] Advance Directives * Full Code (Latest Code Status on File) Date Activated Date Inactivated Comments 11/20/2024 4:39 AM 11/21/2024 7:48 PM * Full Code Date Activated Date Inactivated Comments 01/20/2024 7:29 PM 01/23/2024 3:13 PM Care Teams 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
--- OUTSIDE RECORDS SUMMARY | 2024-12-04 10:02 | XMS_ITS | Clinical Summary ---
Author Organization [facility] Address [address] [place] [phone] Phone Care Team Providers [employer] General Sales Manager Name Role Phone Unavailable Primary Care Provider [...]
--- NOTE | 2024-12-04 10:31 | REHSTMBS ---
Assessment and note entered by Radha Singer COLD ROLLING MACHINE SETTER Modified Barium Swallow Evaluation ICD-10 Condition Codes (ST) Dysphagia, unspecified R13.1 Subjective Information The patient is a 64 year old male referred for an MBS study due to reports of a persistent sticking sensation in his throat. The patient stated he recently had a barium swallow with noted reflux and has been started on omeprazole 20 mg 1x daily which has improved his stomach discomfort. Feeding Type Recommended Oral Food Consistency Regular, Level 7 Liquid Consistency Thin (0) ST Clinical Summary The patient is a 64 year old male referred for an MBS study due to reports of a persistent sticking sensation in his throat. The patient stated he recently had a barium swallow with noted reflux and has been started on omeprazole 20 mg 1x daily which has improved his stomach discomfort. The patient was positioned in a lateral view and presented the following consistencies: 5cc/tsp thin liquid barium, uncontrolled/sequential cup drinks thin liquid barium, pudding mixed with barium paste, and cracker coated with barium paste. Oral Stage: When presented all consistencies swallow initiation was timely with good oral preparation. Pharyngeal stage when presented 5cc/ tsp thin liquid barium, pudding mixed with barium paste, and cracker coated with barium paste swallow initiation was timely without viewed aspiration or penetration. No residual was viewed to remain in the valleculae or pyriform sinus for all consistencies. The patient had one episode of flash/trace laryngeal penetration with sequential cup drinks of thin liquid barium during the swallow. However material was of minimal amount and cleared with completion of the swallow. Recommend Regular diet/Level 7 and thin Liquid/Level 0.
== END 2024-12-04 09:52 | disposition home or self-care (01) ==
PROVIDERS: PCP Internal Medicine; Visit Provider Internal Medicine
DX: R13.10 Dysphagia, unspecified (principal)
CPT/HCPCS: 74230; 92611

== ENCOUNTER 2025-05-06 10:43 | Outpatient (CLI) | payer OTHER, SELFPAY ==
--- NOTE | ~2025-05-06 | XR_ITS ---
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 Findings: No acute fracture or malalignment. No significant degenerative changes. Soft tissues unremarkable. Impression: No acute fracture or malalignment. Reviewed, dictated and finalized at location P. NING SUPERVISOR Impression: No acute fracture or malalignment.
== END 2025-05-06 10:44 | disposition home or self-care (01) ==
PROVIDERS: PCP Internal Medicine; Visit Provider Internal Medicine
DX: R07.89 Other chest pain (principal)
CPT/HCPCS: 71120